=== PATIENT | female | born 1940 | race Caucasian/White ===

== ENCOUNTER 2018-06-15 15:05 | Outpatient (CLI) | payer MEDICARE, MEDICAID, SELFPAY ==
--- NOTE | 2018-06-15 15:19 | DI.RAD_ITS ---
SYMPTOMS/DIAGNOSIS: ARTHRITIS OF LEFT KNEE, M17.12 LEFT KNEE: Comparison is made with March,. Again noted is severe narrowing of the medial femorotibial joint space and varus angulation. Loose bodies are again seen posteriorly. There is mild spurring at the patellofemoral joint, also stable. IMPRESSION: Stable severe degenerative changes of the medial femorotibial joint.
== END 2018-06-15 15:25 ==
PROVIDERS: PCP Family Medicine; Visit Provider Family Medicine
DX: M17.12 Unilateral primary osteoarthritis, left knee (principal)
CPT/HCPCS: 73562

== ENCOUNTER → 2018-06-17 09:40 | Outpatient (BNVA) | payer MEDICARE, MEDICAID, SELFPAY | PROVIDERS: PCP Family Medicine; Visit Provider Internal Medicine Cardiovascular Disease | DX: I25.810 Atherosclerosis of coronary artery bypass graft(s) without angina pectoris (principal); I51.9 Heart disease, unspecified; I13.10 Hypertensive heart and chronic kidney disease without heart failure, with stage 1 through stage 4 chronic kidney disease, or unspecified chronic kidney disease; I34.0 Nonrheumatic mitral (valve) insufficiency; E11.22 Type 2 diabetes mellitus with diabetic chronic kidney disease; Z79.4 Long term (current) use of insulin; N18.9 Chronic kidney disease, unspecified | CPT/HCPCS: 99214 ==

== ENCOUNTER → 2018-07-07 13:46 | Outpatient (BNVA) | payer MEDICARE, MEDICAID, SELFPAY | PROVIDERS: PCP Family Medicine; Referring Provider Family Medicine; Visit Provider Student in an Organized Health Care Education/Training Program | DX: M17.12 Unilateral primary osteoarthritis, left knee (principal); E11.9 Type 2 diabetes mellitus without complications; Z79.4 Long term (current) use of insulin; I10 Essential (primary) hypertension | CPT/HCPCS: 99201; 99214 ==

== ENCOUNTER 2018-08-18 11:10 | Outpatient (CLI) | payer MEDICARE, MEDICAID, SELFPAY ==
[2018-08-18 12:59] LABS: Potassium 3.9 mmol/L (3.5-5.1)
[2018-08-18 13:13] LABS: Hemoglobin A1C 8.1 % (4.5-6.2)
== END 2018-08-18 11:30 ==
PROVIDERS: PCP Family Medicine; Visit Provider Family Medicine
DX: E11.65 Type 2 diabetes mellitus with hyperglycemia (principal); I10 Essential (primary) hypertension
CPT/HCPCS: 36415; 83036; 84132

== ENCOUNTER 2018-09-08 09:46 | Outpatient (CLI) | payer MEDICARE, MEDICAID, SELFPAY ==
[2018-09-08 11:57] LABS: HGB 12.2 g/dL (12.0-15.5); Mean Corp. HGB Concentration 32.1 g/dL (32.0-36.0); Mean Corpuscular Hemoglobin 28.2 pg (27.0-33.0); Mean Corpuscular Volume 87.8 fL (80-95); Mean Platelet Volume 11.5 fL (8.0-11.0); Platelet Count 176 x1000/uL (130-400); RBC 4.33 m/cumm (4.00-5.20); RBC Distribution Width 14.7 % (11.7-14.6); White Blood Cell Count 5.72 k/cumm (4.4-10.8)
[2018-09-08 12:35] LABS: Anion Gap 8.5 mmol/L (3-11); BUN 20 mg/dL (7-18); CO2 30.5 mmol/L (21.0-32.0); Chloride 103 mmol/L (98-107); Glucose 170 mg/dL (70-100); Potassium 4.3 mmol/L (3.5-5.1); Sodium 142 mmol/L (136-145)
== END 2018-09-08 10:06 ==
PROVIDERS: PCP Family Medicine; Visit Provider Student in an Organized Health Care Education/Training Program
DX: M25.562 Pain in left knee (principal); M17.12 Unilateral primary osteoarthritis, left knee; I10 Essential (primary) hypertension; E11.9 Type 2 diabetes mellitus without complications; K21.9 Gastro-esophageal reflux disease without esophagitis; Z01.818 Encounter for other preprocedural examination
CPT/HCPCS: 36415; 80048; 85027; 86850; 86900; 86901

== ENCOUNTER → 2018-10-14 08:02 | Outpatient (BNVA) | payer MEDICARE, MEDICAID, SELFPAY | PROVIDERS: PCP Family Medicine; Referring Provider Family Medicine; Visit Provider Student in an Organized Health Care Education/Training Program | DX: R69 Illness, unspecified (principal) ==

== ENCOUNTER 2018-10-14 08:09 | Inpatient (IN) | payer MEDICARE, MEDICAID, SELFPAY ==
[2018-10-14] VITALS (11 sets, daily range): BP systolic 123–157; BP diastolic 57–81; PULSE 61–72; RESP 16–21; TEMP 36.3–36.7; O2SAT 92–95
[2018-10-14] MEDS: Bupivacaine 0.5% Pres-Free 30 ML VIAL (08:21)
[2018-10-14] MEDS: Acetaminophen 500 MG TAB 1000 MG PO ×3 (08:51→23:00)
[2018-10-14] MEDS: Celecoxib 200 MG CAP 400 MG PO (08:52)
[2018-10-14] MEDS: Gabapentin 300 MG CAP PO (08:52)
[2018-10-14 09:30] LABS: Anion Gap 6.2 mmol/L (3-11); BUN 15 mg/dL (7-18); CO2 32.8 mmol/L (21.0-32.0); CREATININE 1.03 mg/dL (0.55-1.02); Calcium 9.2 mg/dL (8.5-10.1); Chloride 104 mmol/L (98-107); Glucose 114 mg/dL (70-100); Potassium 3.9 mmol/L (3.5-5.1); Sodium 143 mmol/L (136-145)
[2018-10-14] MEDS: Lactated Ringers 1,000 ML 80 ML IV ×2 (09:49→13:50)
[2018-10-14] MEDS: Bupivacaine LIPOSOME/PF 133 MG/10 ML VIAL IJ ×2 (10:10→11:32)
[2018-10-14] MEDS: Bupivacaine 0.25% Pres-Free 30 ML VIAL (11:32)
[2018-10-14] MEDS: Ketorolac 30 MG/ML VIAL (11:32)
[2018-10-14] MEDS: Normal Saline 20 ML VIAL (11:33)
--- NOTE | 2018-10-14 15:38 | NUR.NOTE ---
Nursing Note: Pt arrived from PACU via stretcher. Physical Therapy on floor at arrival and helped Pt tranfer from stretcher to bed via walker and minimal assist. Pt has good strength. c/o some dizziness. VSS. Kept on O2 d/t drowsiness and 90% on RA.
--- NOTE | 2018-10-14 16:00 | PT.INIE ---
Date of service: 10/14/18 Time of Service: 13:40 PT Notes Inpatient Physical Therapy Evaluation Date: 10/14/18 Referring Doctor: Dr. Auguste PT Orders: PT CONSULT: Status post left TKA Precautions: Weightbearing as tolerated left lower extremity, fall, standard Patient Profile/Admitting Diagnosis: Patient admitted after left total knee replacement performed earlier today. PMHX: Diabetes, hypertension, dyslipidemia, status post CABG Social History/Home Situation: Patient lives in a mobile home with ramp to enter. She reports that she lives with her son, who assist with her care. She has been utilizing a wheeled walker due to increasing knee pain prior to surgery Equipment Owned/DME: Wheeled walker, ramp Subjective: Patient states that she is feeling good. She denies pain, and states that she feels comfortable getting up and trying some walking. Objective: General Observation: Patient resting on gurney with Cryo/Cuff to left knee, Jag wrap to left lower extremity, supplemental oxygen via nasal cannula, IV in left upper extremity, Collins catheter. Mental Status: A and O x3 Pain: 0/10 ROM: Right Upper Extremity: WFL Left Upper Extremity: WFL Right Lower Extremity: WFL Left Lower Extremity: Patient is able to demonstrate 0-85 degrees of knee flexion functionally. Strength: Right Upper Extremity: WFL Left Upper Extremity: WFL Right Lower Extremity: WFL Left Lower Extremity: Patient is able to perform straight leg raise, and able to demonstrate quad strength greater than or equal to 3/5. Ankle dorsiflexion is at least 3/5 Sensation: Intact distally Bed Mobility/Transfers: Supine?sit: Supervision Sit?supine: Supervision with cues for technique Sit?stand: Contact-guard x2 Stand to sit: Contact-guard x2, with cues for technique Gait: Patient ambulate 6 feet with FW W, CG x2, mod cues for technique and equipment management. Balance: Static Sitting: Good Dynamic Sitting: Good Static Standing: Fair Dynamic Standing: Fair Special Tests: Mobility Limitations Standardized Measure [facility] AM-PAC 6 clicks Basic Mobility Inpatient Short Form: Raw Score: 18 CMS Score: 47% deficit Informed Consent/Education: Patient instructed in purpose of PT consult and plan of care. She received gait and transfer training, and was instructed in early bed exercises, including ankle pumps, quad sets and glutes sets. She was encouraged to perform these independently throughout the night. Assessment: Patient is a78 year old male referred to physical therapy services with the diagnosis of left knee OA, status post TKA performed earlier today. Patient presents with clinical signs and symptoms consistent with postoperative status, as demonstrated by the following impairment level findings: 1. Decreased left knee range of motion 2. Decreased left lower extremity strength 3. Decreased balance 4. Decreased activity tolerance Impairments are contributing to the following functional limitations: 1. Unable to independently transfer 2. Unable to independently ambulate 3. Decreased tolerance to household distance ambulation Patient is assessed as Moderate 22870 complexity based on the following: History: 78-year-old female admitted after total knee replacement performed earlier today. Her medical history is significant for diabetes and cardiac issues, which will negatively impact prognosis. She does have good social supports at home and tolerating initiation of PT intervention very well today. Examination: Functional limitations as noted above Presentation: Evolving due to acute postoperative status Decision Making: Moderate complexity Goals: Goals X1 week 1. Supine-Sit: Supervision 2. Sit-Supine : Supervision 3. Sit-Stand: Supervision 4. Stand-Sit : Supervision 5. Bed-Chair : Supervision with FW W 6. Chair-Bed : Supervision with FW W 7. Gait : Supervision with FW W is 50 feet Plan of Care/Treatment Plan: 1-2x/day, 7 days/week x 1 week. Plan of care has been reviewed with the CHICKEN CATCHER providing the service under Physical Therapy direction. Initiate Physical Therapy intervention for strengthening, bed mobility, transfers, gait, stairs, balance training, use of assistive device. DISCHARGE RECOMMENDATIONS: Home with family support TREATMENT CODE/TIME: 140?2:00 ([id number]) Gretel Skaggs, PT, DPT [facility]
--- NOTE | 2018-10-14 16:08 | IN_ITS ---
Date of service: 10/14/18 Time of Service: 13:40 PT Notes Inpatient Physical Therapy Evaluation Date: 10/14/18 Referring Doctor: Dr. Auguste PT Orders: PT CONSULT: Status post left TKA Precautions: Weightbearing as tolerated left lower extremity, fall, standard Patient Profile/Admitting Diagnosis: Patient admitted after left total knee replacement performed earlier today. PMHX: Diabetes, hypertension, dyslipidemia, status post CABG Social History/Home Situation: Patient lives in a mobile home with ramp to enter. She reports that she lives with her son, who assist with her care. She has been utilizing a wheeled walker due to increasing knee pain prior to surgery Equipment Owned/DME: Wheeled walker, ramp Subjective: Patient states that she is feeling good. She denies pain, and states that she feels comfortable getting up and trying some walking. Objective: General Observation: Patient resting on gurney with Cryo/Cuff to left knee, Jag wrap to left lower extremity, supplemental oxygen via nasal cannula, IV in left upper extremity, Collins catheter. Mental Status: A and O x3 Pain: 0/10 ROM: Right Upper Extremity: WFL Left Upper Extremity: WFL Right Lower Extremity: WFL Left Lower Extremity: Patient is able to demonstrate 0-85 degrees of knee flexion functionally. Strength: Right Upper Extremity: WFL Left Upper Extremity: WFL Right Lower Extremity: WFL Left Lower Extremity: Patient is able to perform straight leg raise, and able to demonstrate quad strength greater than or equal to 3/5. Ankle dorsiflexion is at least 3/5 Sensation: Intact distally Bed Mobility/Transfers: Supine?sit: Supervision Sit?supine: Supervision with cues for technique Sit?stand: Contact-guard x2 Stand to sit: Contact-guard x2, with cues for technique Gait: Patient ambulate 6 feet with FW W, CG x2, mod cues for technique and equipment management. Balance: Static Sitting: Good Dynamic Sitting: Good Static Standing: Fair Dynamic Standing: Fair Special Tests: Mobility Limitations Standardized Measure [facility] AM-PAC 6 clicks Basic Mobility Inpatient Short Form: Raw Score: 18 CMS Score: 47% deficit Informed Consent/Education: Patient instructed in purpose of PT consult and plan of care. She received gait and transfer training, and was instructed in early bed exercises, including ankle pumps, quad sets and glutes sets. She was encouraged to perform these independently throughout the night. Assessment: Patient is a78 year old male referred to physical therapy services with the diagnosis of left knee OA, status post TKA performed earlier today. Patient presents with clinical signs and symptoms consistent with postoperative status, as demonstrated by the following impairment level findings: 1. Decreased left knee range of motion 2. Decreased left lower extremity strength 3. Decreased balance 4. Decreased activity tolerance Impairments are contributing to the following functional limitations: 1. Unable to independently transfer 2. Unable to independently ambulate 3. Decreased tolerance to household distance ambulation Patient is assessed as Moderate [id number] complexity based on the following: History: 78-year-old female admitted after total knee replacement performed earlier today. Her medical history is significant for diabetes and cardiac iss ues, which will negatively impact prognosis. She does have good social supports at home and tolerating initiation of PT intervention very well today. Examination: Functional limitations as noted above Presentation: Evolving due to acute postoperative status Decision Making: Moderate complexity Goals: Goals X1 week 1. Supine-Sit: Supervision 2. Sit-Supine : Supervision 3. Sit-Stand: Supervision 4. Stand-Sit : Supervision 5. Bed-Chair : Supervision with FW W 6. Chair-Bed : Supervision with FW W 7. Gait : Supervision with FW W is 50 feet Plan of Care/Treatment Plan: 1-2x/day, 7 days/week x 1 week. Plan of care has been reviewed with the EMERGENCY NURSE providing the service under Physical Therapy direction. Initiate Physical Therapy intervention for strengthening, bed mobility, transfers, gait, stairs, balance training, use of assistive device. DISCHARGE RECOMMENDATIONS: Home with family support TREATMENT CODE/TIME: 140?2:00 ([id number]) Gretel Skaggs, PT, DPT [facility]
[2018-10-14] MEDS: Budesonide/Formoterol 80/4.5 6.9 GM 60 PUFF INH IH (20:35)
[2018-10-14] MEDS: Aspirin E.C. 81 MG TABEC PO (20:35)
[2018-10-14] MEDS: Celecoxib 100 MG CAP PO (20:36)
--- NOTE | 2018-10-14 23:00 | W.PM.OP ---
Date of service: 10/14/18 Time of Service: 14:00 Operative Note DATE OF PROCEDURE: 10/14/18 PRE-OP DIAGNOSIS: Left knee osteoarthritis POST-OP DIAGNOSIS: same PROCEDURE: Left total Knee Replacement SURGEON: aWle Auguste FAMILY [employer] MARRIAGE COUNSELLOR: Claudia Frazier ANESTHESIA: regional and spinal ESTIMATED BLOOD LOSS: 150 PATHOLOGY: none sent TOURNIQUET TIME: 25 COMPLICATIONS: None Patient was transported to: PACU Patient's condition: stable Implants: 1. Depuy Attune Posterior Stabilized Femoral Component, Size 4 2. Depuy Attune Fixed Platform Tibial Component, Size 4 x 8mm 3. Depuy Attune 4 x 8 mm fixed, Stabilized Poly 4. Depuy Attune Patellar Component, Size 32 mm Indications: I have seen Marija in clinic for symptoms of LEFT knee arthritis, confirmed with radiographic findings. Marija has exhausted nonoperative methods and was having significant limitations in daily function and desired better function and less pain. I discussed the technical details of a knee replacement. I explained the risks of the procedure to include, but not limited to, bleeding, infection, pain, stiffness, fracture, damage to nerves and vessels, damage to muscles and tendons, loosening, need for repeat procedure, blood clot and cardiopulmonary demise. Despite these risks, she elected to proceed. Findings: There was significant signs of arthritis throughout the knee. Procedure Description: Catarino was greeted in the preoperative holding area where the correct side was identified and marked. The consent was reviewed with the patient and signed. The history and physical was updated. All questions were answered. Preoperative medications were administered: Acetaminophen 1000mg, Celebrex 400mg, and gabapentin 300mg. An adductor canal block was then administered by the anesthesia team in the PACU. Marija was taken back to the operating room. A spinal anesthestic was then administered. The patient was placed into the supine position on the operating room table. A nonsterile tourniquet was placed high onto the leg but only used for cementing. Posts were placed for positioning during the procedure. All bony prominences were well padded. Prophylactic antibiotics in the form of cefazolin were administered. 1g of Tranxemic Acid was given intravenously within 30 minutes of incision. The right leg was then prepped with Chloraprep and draped in a standard fashion with impervious stockinette and extremity drape with Iodine impregnated skin protection. A timeout to confirm correct identity, side and site, procedure, allergies, anesthesia, and medical concerns was performed. With the knee in some flexion, a midline incision was made overlying the knee. Full thickness skin flaps were raised once the extensor mechanism was encountered. These were raised medially and laterally. Any bleeding was controlled with electrocautery. Once the extensor mechanism was fully exposed, a medial parapatellar arthrotomy was performed in a flexed position. All bleeding from the arthrotomy and the geniculate arteries was coagulated. A medial subperiosteal peel was performed with electrocautery to the midcoronal plane. Due to the significant varus deformity the entire medial tibial plateau was exposed. The fat pad was removed while keeping the patellar tendon protected. The anterior distal femur synovium was removed for later visualization. The ACL and PCL were resected and the anterior horn of the lateral meniscus was transected. The knee was then flexed with the patella everted. Large osteophytes from the tibia were removed. Large osteophytes from the femur were removed. Using a step drill, and based on preoperative templating, the femoral canal was entered. This was done with a step drill without any difficulty. The intramedullary distal femoral cut guide was inserted, set to a 5 degree valgus cut and 9mm cut thickness. The distal femoral cut guide was then held in position and pinned. With the soft tissues protected, the distal cut was performed. This was passed over a few times to ensure a planar cut. I then turned attention to the tibia. The extramedullary guide was placed onto the leg. The distal aspect was slid medial to adjust for position of center of ankle and stay in line with shaft of the tibia. Approximately 3-5 degrees of posterior slope was kept in the proximal cutting guide. The center of the guide was aligned with the PCL. The stylus was used to assess cut thickness. The medial side, most involved side, was set for a 4mm cut. This was then held in position and pinned into place with 2 additional pins and a cross pin for stability. The medial and lateral collateral ligaments were protected and the cut was performed. With this completed, it was assessed and noted to be of appropriate dimensions. The guide was removed. A spacer block was inserted and the knee was brought into extension. The 7 mm spacer block provided full extension, without hyperextension and with stability of both the medial and lateral collateral ligaments was assessed. The pins from the femur and the tibia were then removed. The distal femur was then sized. The anterior stylus was placed onto the lateral ridge of the anterior femur. This indicated a size 4 femur. The external rotation of the guide was adjusted to 3 degrees to match the epicondylar axis, perpendicular to Dwayne?s line. The 4-in-1 cutting guide was the placed. The posterior medial femur cut was evaluated and appeared of good thickness. The spacer block was inserted underneath the cutting guide and stability was confirmed in 90 degrees of flexion. An jordan wing was used to confirm appropriate position of the anterior cut to avoid notching. This cutting guide was ensured to be flush on the cut surface and then pinned into place with headed pins. While protecting the soft tissues, quad tendon, and collateral ligaments, the anterior and posterior cuts were performed with a saw. The central two pins were removed and the posterior and anterior chamfers were cut next. The notch-cutting guide was placed. This was pinned to lateralize the femoral component as much as possible while keeping it flush on the cut surface. This was then pinned into position. A reciprocating saw was used to make the notch cut. A rasp smoothed the cut surfaces. A trial posterior stabilized femoral component was then inserted, impacted down to the cut surfaces, and the lug holes were drilled. A provisional trial tibial component was placed and the knee was brought through range of motion. There was noted to be excellent extension and flexion. There was no significant instability. The polyethylene was trialed until there was good flexion and extension with excellent stability to the medial and lateral collaterals. The patella was tracking without thumbs. The tibial cut surface was fully exposed. The medial and lateral menisci were removed. The tibia was then sized as a 4. The tibia had been previously marked during trialing to correspond to the center of the tibial component to help with rotation. The trial was aligned to this christian, approximately rotated to the medial 1/3rd of the tibial tubercle. The trial was pinned into place. The tibia was prepared with a reamer and a keel punch. The knee was then brought into extension and the patella was measured as 25 mm. Using the patellar clamp and cut guide, this was resected to a flat surface with at least 13mm of thickness remaining. The size 35 patella fit the best. This was oriented and then clamped into position. The lugs were drilled. The trial components were removed. The final components, except for the polyethylene were opened on the back table. The periosteal and capsular tissues, especially posteriorly, around the knee were then systematically injected with a periarticular cocktail consisting of 50cc 0.25% Marcaine, 30mg Ketorolac, 20cc of Exparal and 50cc of injectable saline. The tourniquet was then inflated to 275mmHg. The knee was thoroughly irrigated with a pulse lavage and dried. On the back table, with the implants opened, the cement was mixed. 2 batches of antibiotic laden cement were prepared with vacuum assistance. After the cement was ready a small amount was placed on to the back side of the tibial component at the keel. A small amount was placed onto the posterior flange of the femur. Cement was manual pressurized and impregnated into the cut surface of the tibia. The tibial component was then inserted into the cut surface and impacted into position. Excess cement was removed and the component was reimpacted. Again, excess cement was removed and our attention was then turned to the femur. The femoral cut surface was once again dried and cement was manually impacted into the cut surface. The femoral component was lined with the lug holes and impacted. Excess cement was removed. It was ensured to be down against the cut surface. The trial polyethylene was then inserted and the leg was brought out into full extension for the duration of the cement curing process, approximately 15min. Cement was lastly manually impacted into the cut surface of the patella and the patellar button was clamped into position and held. During this process attention was turned to the gutters of the knee and for all interfaces for any excess cement. After the cement had finally cured, approximately 15min, the clamp was removed from the patella and the knee was taken through range of motion. A size 6mm polyethylene component provided the best range of motion and stability with less than 2mm gapping with medial and lateral stress and full extension without significant hyperextension. The patella was tracking with a no-thumbs technique. The trial poly was removed and once again the knee was checked for any loose, excess, or errant cement. The poly component was then inserted and impacted into position after cleaning and drying the tibial tray. The capsule was then reapproximated with a No. 1 Vicryl at multiple locations. The capsule was finally closed with a No. 2 Stratafix, barbed suture. The tourniquet was then released and the arthrotomy appeared watertight without significant bleeding. The second dosing of 1g TXA was started. Deep tissues were then reapproximated with 0 Vicryl and 2-0 Vicryl. The skin was closed with a running 3-0 Monocryl in a subcuticular fashion. This was reinforced with skin glue. A Mepilex silver dressing was applied along with a [id number] KENNETH wrap. A CryoCuff was applied. VANDANA was transferred to the hospital bed without difficulty an suffering no apparent complication. NAME has a good prognosis. Physical therapy will start today and without restrictions, weight-bearing as tolerated. Aspirin 81mg BID will be used for DVT prophylaxis.
[2018-10-14] MEDS: Insulin Glargine 300 UNITS/3 ML PEN 30 UNITS SC (23:01)
[2018-10-14] MEDS: ROSUVASTATIN 20 MG TAB 40 MG PO (23:01)
[2018-10-15] VITALS (7 sets, daily range): BP systolic 102–127; BP diastolic 61–92; PULSE 63–71; RESP 18–20; TEMP 35.8–37.4; O2SAT 91–98
[2018-10-15] MEDS: Lactated Ringers 1,000 ML 80 ML IV (03:15)
[2018-10-15] MEDS: HYDROmorphone 2 MG TAB PO ×2 (03:16→13:59)
[2018-10-15] MEDS: Normal Saline Flush 10 ML SYR IV ×2 (07:55→21:07)
[2018-10-15] MEDS: Aspirin E.C. 81 MG TABEC PO ×2 (07:58→21:11)
[2018-10-15] MEDS: Esomeprazole 40 MG CAPCR PO (07:58)
[2018-10-15] MEDS: NIFEdipine-CR 30 MG TABCR 90 MG PO (07:59)
[2018-10-15] MEDS: Montelukast 10 MG TAB PO (07:59)
[2018-10-15] MEDS: Sertraline 50 MG TAB 150 MG PO (07:59)
[2018-10-15] MEDS: Loratidine 10 MG TAB PO (08:00)
[2018-10-15] MEDS: Potassium Chloride 20 MEQ TABCR PO ×2 (08:00→21:10)
[2018-10-15] MEDS: Beta-Carotene(A) w/C,E, & Minerals TAB 1 TAB PO (08:00)
[2018-10-15] MEDS: Acetaminophen 500 MG TAB 1000 MG PO ×3 (08:00→21:11)
[2018-10-15] MEDS: Multivitamin w/Minerals TAB 1 TAB PO (08:00)
[2018-10-15] MEDS: Celecoxib 100 MG CAP PO ×2 (08:00→21:10)
[2018-10-15] MEDS: Furosemide 40 MG TAB PO (08:00)
[2018-10-15] MEDS: Losartan 50 MG TAB 100 MG PO (08:00)
[2018-10-15] MEDS: Metoprolol CR 50 MG TABCR PO (09:03)
--- NOTE | 2018-10-15 11:32 | PDOC.CMIN ---
Care Management Initial Assess REASON FOR HOSPITALIZATION:: L Knee DJD PAST MEDICAL HISTORY/PAST SURGICAL HISTORY:: CAD s/p three vessel bypass graft in 2011, history of depression, diabetes mellitus type 2 requiring insulin, hypertension, Basal carcinoma of the face, GERD, Asthma, Colonoscopy, Heart surgery, Ligation of fallopian tube, rotator cuff repair, Right carpal tunnel surgery release PREVIOUS FUNCTIONAL STATUS/SOCIAL/FAMILY SUPPORTS:: Marija resides in [place], her son and grandchild reside with her. She reports having seven children, with five now living-with an age range of 39-57. She reports a love of cooking her whole life which she still enjoys. 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 She also reports working at [employer] prior to retiring. She drives and manages her own ADLs at baseline and reports a robust, supportive family. One of her daughters and two of her sisters are in the room when meets with her. CURRENT FUNCTIONAL STATUS:: Marija Padgett is entertaining in interaction; using good humor to engage fully. She is forthcoming with information and pleasant in interaction. ADVANCE DIRECTIVES:: On file at [facility]: Kalin as Agent, Kayla as Alternate Has patient been provided with information about the portal?: Yes Did the patient sign up for the portal?: No CODE STATUS:: Full Code INSURANCE COVERAGE / FINANCIAL ISSUES:: Medicaid. Medicare CURRENT HOME/COMMUNITY SERVICES/EQUIPMENT:: FWW. PRIMARY CARE PHYSICIAN:: Paul Christiansen MD-[facility] POTENTIAL DISCHARGE NEEDS:: CM faxed referral to [facility] for Options Counselor with focus on Case Management, DME (interested in [facility]) and [facility] supports. Lorin will also have follow up appointment scheduled with Dr. Auguste. CM filled prescription for Shower Chair through [facility]. Notify Yudi Martin of admission; discharge plan. PATIENT/FAMILY EDUCATION NEEDS:: Review discharge instructions, discuss community based supports, DME options and coordination of services. ANTICIPATED BARRIERS TO DISCHARGE:: None identified. TRANSPORTATION:: Via private vehicle with family. PLAN:: Undetermined if Lorin will have new orders for [facility] supports through [facility], CM filled prescription for Shower Chair through [facility] at Patient and MD request. CM faxed referral to [facility] for CM, [facility] and additional DME request of [facility]. Lorin will return home when ready per MD, she will follow up with Dr. Auguste and her plan of care as prescribed including activity limitations and medication recommendations. She will transport via private vehicle with family.
--- NOTE | 2018-10-15 12:41 | PT.INTREAT ---
Date of service: 10/15/18 Time of Service: 09:15 PT Notes Inpatient Physical Therapy Treatment Note [facility] Date: 10/15/18 PRECAUTIONS: Fall, standard SUBJECTIVE: Temo states that she is feeling very good this morning. She is anxious to get out walking. OBJECTIVE: PAIN: 0/10 BED MOBILITY/TRANSFERS Supine-sit: Supervision Sit-supine: Supervision Sit-stand: Supervision Stand-sit: Supervision GAIT Assistive Device: FW W Weight bearing: WBAT Assist: 100 feet with CG; 30 feet with supervision Deviation: Patient ambulates on room air, desaturating to 86%. She was returned to supplemental oxygen (2 LPM, nasal cannula) where she rapidly desaturates back to 94%. THEREX: Patient was instructed in a therapeutic exercise program, as noted on flowsheet. She is instructed in the following activities for home program (is provided with handouts in her postop packet) 1. Ankle pumps 2. Quad sets 3. Glutes sets 4. L AQ 5. Heel slide 6. Seated knee flexion ASSESSMENT: Patient tolerating progressive ambulation well, although with oxygen desaturation on room air. Nursing was alerted, and patient was returned to supplemental oxygen post treatment. PLAN: Continue progressing towards established goals TREATMENT CODE/TIME: 915?950 ([id number], [id number])
--- NOTE | 2018-10-15 12:45 | PTTR_ITS ---
Date of service: 10/15/18 Time of Service: 09:15 PT Notes Inpatient Physical Therapy Treatment Note [facility] Date: 10/15/18 PRECAUTIONS: Fall, standard SUBJECTIVE: Temo states that she is feeling very good this morning. She is an xious to get out walking. OBJECTIVE: PAIN: 0/10 BED MOBILITY/TRANSFERS Supine-sit: Supervision Sit-supine: Supervision Sit-stand: Supervision Stand-sit: Supervision GAIT Assistive Device: FW W Weight bearing: WBAT Assist: 100 feet with CG; 30 feet with supervision Deviation: Patient ambulates on room air, desaturating to 86%. She was returned to supplemental oxygen (2 LPM, nasal cannula) where she rapidly desaturates back to 94%. THEREX: Patient was instructed in a therapeutic exercise program, as noted on flowsheet. She is instructed in the following activities for home program (is provided with handouts in her postop packet) 1. Ankle pumps 2. Quad sets 3. Glutes sets 4. L AQ 5. Heel slide 6. Seated knee flexion ASSESSMENT: Patient tolerating progressive ambulation well, although with oxygen desaturation on room air. Nursing was alerted, and patient was returned to supplemental oxygen post treatment. PLAN: Continue progressing towards established goals TREATMENT CODE/TIME: 915?950 ([id number], [id number])
--- NOTE | 2018-10-15 13:53 | CHAPLAIN ---
Marija was sitting up in her chair when I visited this morning. She had several family members with her. She told me about her knee surgery went well and she has been up and walking. Marija is Hinduism and attends [employer] in [place]. I let her know that Fr. Salamanca or Fr. Low will likely be in this afternoon to visit.
--- NOTE | 2018-10-15 14:51 | INITIAL_ITS ---
Care Management Initial Assess REASON FOR HOSPITALIZATION:: L Knee DJD PAST MEDICAL HISTORY/PAST SURGICAL HISTORY:: CAD s/p three vessel bypass graft in 2011, history of depression, diabetes mellitus type 2 requiring insulin, hypertension, Basal carcinoma of the face, GERD, Asthma, Colonoscopy, Heart surgery, Ligation of fallopian tube, rotator cuff repair, Right carpal tunnel surgery release PREVIOUS FUNCTIONAL STATUS/SOCIAL/FAMILY SUPPORTS:: Marija resides in [place], her son and grandchild reside with her. She reports having seven children, with five now living-with an age range of 39-57. She reports a love of cooking her whole life which she still enjoys. 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 She also reports working at [employer] prior to retiring. She drives and manages her own ADLs at baseline and reports a robust, supportive family. One of her daughters and two of her sisters are in the room when meets with her. CURRENT FUNCTIONAL STATUS:: Marija Padgett is entertaining in interaction; using good humor to engage fully. She is forthcoming with information and pleasant in interaction. ADVANCE DIRECTIVES:: On file at [facility]: Kalin as Agent, Kayla as Alternate Has patient been provided with information about the portal?: Yes Did the patient sign up for the portal?: No CODE STATUS:: Full Code INSURANCE COVERAGE / FINANCIAL ISSUES:: Medicaid. Medicare CURRENT HOME/COMMUNITY SERVICES/EQUIPMENT:: FWW. PRIMARY CARE PHYSICIAN:: Paul Christiansen MD-[facility] POTENTIAL DISCHARGE NEEDS:: CM faxed referral to [facility] for Options Counselor with focus on Case Management, DME (interested in [facility]) and [facility] supports. Rafy rosenberg will also have follow up appointment scheduled with Dr. Auguste. CM filled prescription for Shower Chair through [facility]. Notify Yudi Martin of admission; discharge plan. PATIENT/FAMILY EDUCATION NEEDS:: Review discharge instructions, discuss community based supports, DME options and coordination of services. ANTICIPATED BARRIERS TO DISCHARGE:: None identified. TRANSPORTATION:: Via private vehicle with family. PLAN:: Undetermined if Lorin will have new orders for VNA supports through [facility], CM filled prescription for Shower Chair through [facility] at Patient and MD request. CM faxed referral to [facility] for CM, [facility] and additional DME request of [facility]. Lorin will return home when ready per MD, she will follow up with Dr. Auguste and her plan of care as prescribed including activity limitations and medication recommendations. She will transport via private vehicle with family.
--- NOTE | 2018-10-15 15:49 | PTTR_ITS ---
Date of service: 10/15/18 Time of Service: 15:05 PT Notes Inpatient Physical Therapy Treatment Note [facility] Date: PRECAUTIONS:fall, standard SUBJECTIVE: Lorin states that her knee is very uncomfortable. She is been sitt ing up in the chair for a couple of hours, and would like to get back to bed. She has questions about obtaining a shower chair for home, which she has been discussing with care management. OBJECTIVE: Patient was seen for 2 brief afternoon sessions. She was initially assisted back to bed, and completed a portion of her therapeutic exercises, but declines ambulation. She later participates in a more substantial treatment session (30 minutes) with completion of gait and transfer training, as well as additional therapeutic exercises. PAIN: 03/02 BED MOBILITY/TRANSFERS Sit-supine: Mod assist to the left lower extremity Sit-stand: Min assist from chair, after prolonged sitting. During later afternoon session, patient completes with supervision only from edge of bed. Stand-sit: Supervision Toileting: Independent with upper extremity support to rails GAIT Assistive Device: FW W Weight bearing: WBAT left lower extremity Assist: CG Distance: 3 feet x1, 75 feet x1 VITALS: Patient ambulates on room air, again desaturating to 87%, and requiring pursed lip breathing at edge of bed to return to 90%. Post treatment, she was returned to supplemental oxygen via nasal cannula. THEREX: Patient completed both supine and seated therex activities, as noted on flowsheet. ASSESSMENT: Increased discomfort this afternoon. Patient was encouraged to participate in frequent short distance ambulation to reduce symptoms of pain and stiffness. She will requiring shower chair for home use, due to limited balance with dynamic standing (as noted in initial evaluation document). PLAN: Patient has planned discharge for tomorrow, and will require continued PT intervention in the meantime to maximize safety and independence prior to returning home. TREATMENT CODE/TIME: 135?145; 305?335 (total 40 minutes) ([id number], [id number])
[2018-10-15] MEDS: Budesonide/Formoterol 80/4.5 6.9 GM 60 PUFF INH IH (21:08)
[2018-10-15] MEDS: ROSUVASTATIN 20 MG TAB 40 MG PO (21:10)
[2018-10-15] MEDS: Insulin Glargine 300 UNITS/3 ML PEN 30 UNITS SC (22:13)
[2018-10-16] VITALS (8 sets, daily range): BP systolic 89–122; BP diastolic 48–62; PULSE 65–87; RESP 18–24; TEMP 36.2–37.2; O2SAT 81–94
[2018-10-16] MEDS: HYDROmorphone 2 MG TAB PO ×2 (04:29→13:09)
--- NOTE | 2018-10-16 06:58 | W.PM.PROGNOT ---
Date of Service Date of service: 10/15/18 Time of Service: 15:58 Assessment and Plan (1) Osteoarthritis, knee: Current visit: No Status: Deleted Marija is status post right knee replacement. She is doing well. She has no signs of complication. We will continue with aspirin for DVT prophylaxis. She will continue with physical therapy. Likely home tomorrow. Qualifiers: Laterality: left Osteoarthritis type: primary Qualified Code(s): M17.12 - Unilateral primary osteoarthritis, left knee Subjective Patient reports: no new complaints Interval history since last seen: Marija has been doing well. She reports good pain control. She has had some soreness when she tries to mobilize requiring some assistance. However, she is happy thus far with progress. She denies chest pain or shortness of breath. She has no fever or chills. Exam Narrative Exam Narrative: No acute distress. Alert oriented x3. Evaluation left leg shows a dressing which is clean dry and intact. Range of motion approximate 10-80 degrees. She is able straight leg raise although with some weakness. Sensation intact light touch of the deep and superficial peroneal nerve and tibial nerves. The foot is warm and well perfused. Objective Objective Clinical Data: Vital Signs Temperature 36.4 C L 10/16/18 03:36 Temperature Source Tympanic 10/16/18 03:36 Pulse 68 10/16/18 03:36 Pulse Rhythm Regular 10/15/18 21:05 Respiratory Rate 19 10/16/18 03:36 Respiratory Effort Non-Labored 10/15/18 21:05 Respiratory Depth Normal 10/15/18 21:05 Respiratory Pattern Normal 10/15/18 21:05 Blood Pressure 112/57 L 10/16/18 03:36 Pulse Oximetry 93 L 10/16/18 03:36 Respiratory End-tidal CO2 35 10/14/18 13:00 Oxygen Delivery Method Nasal Cannula 10/16/18 03:36 Oxygen Flow Rate 3 10/16/18 03:36 Pain Level 9 10/16/18 04:29 Comment 10/16/18 01:20 Intake & Output 10/15/18 10/15/18 10/16/18 11:59 23:59 11:59 Intake Total 1552.667 / 2542.667 990 / 2542.667 240 / 240 Output Total 1300 / 1300 Balance 252.667 / 1242.667 990 / 1242.667 240 / 240 Intake: IV 442.667 / 452.667 10 / 452.667 Oral 1110 / 2090 980 / 2090 240 / 240 Output: Urine 1300 / 1300 Other: Urine Color Yellow Yellow Urine Appearance Clear Comment large void in toilet, no hat for measurement. Voiding Methods Toilet Laboratory Results Sodium 143 mmol/L (136-145) 10/14/18 09:00 Potassium 3.9 mmol/L (3.5-5.1) 10/14/18 09:00 Chloride 104 mmol/L (98-107) 10/14/18 09:00 Carbon Dioxide 32.8 mmol/L (21.0-32.0) H 10/14/18 09:00 Anion Gap 6.2 mmol/L (3-11) 10/14/18 09:00 BUN 15 mg/dL (7-18) 10/14/18 09:00 Creatinine 1.03 mg/dL (0.55-1.02) H 10/14/18 09:00 Estimated GFR/1.73 m2 52.10 (mL/min/1.73m2) 10/14/18 09:00 Glucose 114 mg/dL (70-100) H 10/14/18 09:00 Hemoglobin A1c 8.0 % (4.5-6.2) H 10/14/18 09:00 Calcium 9.2 mg/dL (8.5-10.1) 10/14/18 09:00 Patient ABO/Rh O Positive 10/14/18 09:00 Antibody Screen Negative 10/14/18 09:00
[2018-10-16] MEDS: Esomeprazole 40 MG CAPCR PO (07:47)
[2018-10-16] MEDS: NIFEdipine-CR 30 MG TABCR 90 MG PO (07:47)
[2018-10-16] MEDS: Sertraline 50 MG TAB 150 MG PO (07:49)
[2018-10-16] MEDS: Potassium Chloride 20 MEQ TABCR PO ×2 (07:49→19:45)
[2018-10-16] MEDS: Celecoxib 100 MG CAP PO ×2 (07:49→19:45)
[2018-10-16] MEDS: Acetaminophen 500 MG TAB 1000 MG PO ×3 (07:49→19:44)
[2018-10-16] MEDS: Montelukast 10 MG TAB PO (07:49)
[2018-10-16] MEDS: Beta-Carotene(A) w/C,E, & Minerals TAB 1 TAB PO (07:50)
[2018-10-16] MEDS: Multivitamin w/Minerals TAB 1 TAB PO (07:50)
[2018-10-16] MEDS: Aspirin E.C. 81 MG TABEC PO ×2 (07:50→19:45)
[2018-10-16] MEDS: Loratidine 10 MG TAB PO (07:50)
[2018-10-16] MEDS: Normal Saline Flush 10 ML SYR IV (07:50)
[2018-10-16] MEDS: Losartan 50 MG TAB 100 MG PO (07:50)
[2018-10-16] MEDS: Furosemide 40 MG TAB PO (07:50)
[2018-10-16] MEDS: Metoprolol CR 50 MG TABCR PO (07:50)
--- NOTE | 2018-10-16 08:00 | PDOC.CMPRO ---
- If Service Date Differs Date of service: 10/16/18 Time of Service: 08:00 Care Management Progress Note S/O:CM met with Lorin in the room. She is sitting up in the chair fully dressed. Lorin was planning to be discharged home today however her Sao2 dropped to 83 when PT was prepping her to ambulate. RT into assess patient, was notified per report and pt discharge was canceled for today. She states she has a history of COPD she denies smoking in her history. She will have an ambulatory walk test with RT to assess if she will need oxygen at discharge. Lorin was encouraged to use her incentive sp. A:Lorin is a 78 year old female admitted for left total knee who experienced a drop in her oxygen saturation on day of discharge. P:Marija will be discharged home when medically ready with VNA supports through [facility], Shower Chair through [facility] at Patient and MD request. Referral to [facility] for CM, [facility] and additional DME request of [facility] faxed. Lorin will follow up with Dr. Auguste and her plan of care as prescribed including activity limitations and medication recommendations. She will transport via private vehicle with family.
--- NOTE | 2018-10-16 08:03 | CMPROGNOTE_ITS ---
- If Service Date Differs Date of service: 10/16/18 Time of Service: 08:00 Care Management Progress Note S/O:CM met with Lorin in the room. She is sitting up in the chair fully dressed. Lorin was planning to be discharged home today however her Sao2 dropped to 83 when PT was prepping her to ambulate. RT into assess patient, was notified per report and pt discharge was canceled for today. She states she has a history of COPD she denies smoking in her history. She will have an ambulatory walk test with RT to assess if she will need oxygen at discharge. Lorin was encouraged to use her incentive sp. A:Lorin is a 78 year old female admitted for left total knee who experienced a drop in her oxygen saturation on day of discharge. P:Marija will be discharged home when medically ready with VNA supports through [facility], Shower Chair through [facility] at Patient and MD request. Referral to [facility] for CM, [facility] and additional DME request of [facility] faxed. Lorin will follow up with Dr. Auguste and her plan of care as prescribed including activity limitations and medication recommendations. She will transport via private vehicle with family.
[2018-10-16] MEDS: Insulin Aspart 300 UNITS/3 ML PEN SC ×5 (08:10→19:50)
--- NOTE | 2018-10-16 08:54 | DSE_ITS ---
Date of service: 10/16/18 Time of Service: 08:54 DS: Diagnosis Discharge Diagnosis (1) Osteoarthritis, knee: Status: Deleted Discharge Plan Disposition Patient Disposition: HOME Condition: Good Discharge Details Reason For Visit: L KNEE DJD Admit Date/Time: 10/14/18 08:09 Admit Provider: Wale Auguste Attending Provider: Wale Auguste Primary Care Provider: Paul Christiansen Hospital Course Hospital Course: Patient was admitted to the medical/surgical floor following the procedure. It was tolerated well without any notable medical, surgical, or anesthetic complications. Mobilization began postoperatively. The bennett catheter was removed and voiding spontaneously. The uterus initially needed some oxygen support for appropriate saturations. Unfortunately, she was unable to make much progress this initially. Eventually, she required a medicine consult where chest x-ray showed some possible consolidations over the lower lobes concerning for either atelectasis or infection. She started on antibiotic and also steroids. After 4 days it started to improve. Her pain also improved where she was ambulating without any assistance. Physical therapy worked with the patient and was cleared for discharge home. Home Meds and New Rx's Prescriptions: New acetaminophen 500 mg tablet 1,000 mg PO Q8H PRN (Reason: pain) Qty: 90 RF: 3 meloxicam 7.5 mg tablet 7.5 mg PO BID Qty: 60 RF: 0 polyethylene glycol 3350 17 gram Powder In Packet 17 g PO BID PRN PRN (Reason: Constipation) Qty: 0 RF: 0 tramadol 50 mg tablet 50 mg PO Q6H PRN (Reason: pain) Qty: 12 RF: 0 levofloxacin 750 mg tablet 750 mg PO DAILY Qty: 2 RF: 0 prednisone 20 mg tablet See Rx Instructions .ROUTE .COMPLEX Qty: 9 RF: 0 Continued blood-glucose meter [OneTouch UltraMini] kit .ROUTE .MEDSUPPLY Qty: 1 RF: 0 ProAir HFA 90 mcg/actuation HFA aerosol inhaler 2 puff Inhalation Q4H PRN Qty: 1 RF: 11 furosemide 40 mg tablet 40 mg PO DAILY Qty: 90 RF: 3 lancets [OneTouch UltraSoft Lancets] misc 1 ea Sub-Q AC & HS Qty: 400 RF: 4 metoprolol succinate 50 mg tablet extended release 24 hr 50 mg PO DAILY Qty: 90 RF: 3 montelukast 10 mg tablet 10 mg PO DAILY Qty: 90 RF: 3 Novolog Flexpen U-100 Insulin 100 unit/mL insulin pen 4 unit Sub-Q 0800,1200,1700 Qty: 5 RF: 3 loratadine [Claritin] 10 mg tablet 10 mg PO DAILY Qty: 90 RF: 3 nitroglycerin [Nitrostat] 0.4 mg tablet, sublingual 0.4 mg Sublingual PRN Qty: 25 RF: 4 NovoFine 30 30 gauge x 1/3 needle 1 ea Miscellaneous AC & HS Qty: 300 RF: 4 rosuvastatin [Crestor] 40 mg tablet 40 mg PO qhs Qty: 90 RF: 4 sertraline [Zoloft] 100 mg tablet 150 mg PO DAILY Qty: 135 RF: 4 Compact Compressor Nebulizer 1 EACH kit 1 ea Miscellaneous Q6H PRN Qty: 1 RF: 0 Centrum Silver Women 1 EACH tablet 1 ea PO DAILY RF: 0 ana stockings 1 RF: 0 ipratropium-albuterol 3 ML solution for nebulization 3 ml Inhalation Q6H PRN Qty: 1 RF: 5 nifedipine [Procardia XL] 90 MG tablet extended release 24hr 90 mg PO DAILY Qty: 90 RF: 4 esomeprazole magnesium [Nexium] 40 MG capsule,delayed release(DR/EC) 40 mg PO QAM Qty: 90 RF: 4 Ocuvite with Lutein 1 EACH tablet 1 ea PO DAILY Qty: 90 RF: 3 potassium chloride 10 mEq tablet extended release 20 meq PO BID Qty: 360 RF: 4 losartan [Cozaar] 100 mg tablet 100 mg PO DAILY Qty: 90 RF: 4 Symbicort 80-4.5 mcg/actuation HFA aerosol inhaler 2 puff Inhalation BID PRNRF: 0 Basaglar KwikPen U-100 Insulin 100 unit/mL (3 mL) insulin pen 30 unit subcut HS RF: 0 Changed aspirin [Aspir-81] 81 MG tablet,delayed release (DR/EC) 81 mg PO BID Qty: 80 RF: 0 Discontinued benzonatate [Tessalon Perles] 100 mg capsule 100 mg PO TID PRN (Reason: cough) Qty: 30 RF: 0 Victoza 3-Vinay 0.6 mg/0.1 mL (18 mg/3 mL) pen injector 1.2 mg subcut DAILY Qty: 6 RF: 5 Discharge Instructions Instructions: Knee Replacement (DC) Additional Instructions: Dr. Auguste?s Total Knee Discharge Instructions Activity: The most important activity is to walk. You should try to take short walks a few times a day. It is important that when resting you work on keeping the knee straight. Avoid putting a pillow behind the knee as this will encourage flexion. Work on range of motion exercises as provided by Physical Therapy. - Start outpatient physical therapy within 2 weeks. - You should wear the ANA hose on both legs for 4 weeks. Dressing: Keep the surgical dressing in place for at least one week. After the first week it may be removed and replace with light gauze and tape or nothing. It may get wet after 3 days but avoid soaking the dressing. If it gets wet, just lightly pat dry. Medications: - You should take Tylenol and anti-inflammatory (Meloxicam) as your primary pain control medications - You have been prescribed a stronger pain medication (Tramadol) for breakthrough pain, take as needed as prescribed. - You will be taking Aspirin 81mg twice a day for DVT prevention unless instructed otherwise. - If you have constipation you should take Colace or Miralax (both scxc-fdt-gulceey). It takes most people 3-4 days to have a bowel movement. Follow-up: 2 weeks - Continue Renally dosed Levofloxacin at 750mg Q48 hours - next dose due tomorrow (10/21). Today is day #4/7 of antibiotics. - Continue but taper Prednisone - 40mg daily X3 days, 20mg daily X3 days then stop. - Continue home inhaler therapy as previous, with liberal use of rescue inhaler and nebulizer if needed. No strenuous activity. Stand Alone Forms: Nursing Discharge Form Referrals: Wale Auguste MD [ [facility] ST[facility]FF PHYSICIAN] - 11/03/18 2:30 pm Activity:: Activity as Tolerated Equipment/Supplies:: Shower Chair and Walker Diet:: Carb Counting Discharge Orders Discharge Orders: Discharge Order (Routine); Ordered 10/20/18 Ordered By: Wale Auguste DS: Data Vitals/I&O Vitals and I&O: Vital Signs Temperature 36.4 C L 10/16/18 03:36 Temperature Source Tympanic 10/16/18 03:36 Pulse 68 10/16/18 03:36 Pulse Rhythm Regular 10/15/18 21:05 Respiratory Rate 19 10/16/18 03:36 Respiratory Effort Non-Labored 10/15/18 21:05 Respiratory Depth Normal 10/15/18 21:05 Respiratory Pattern Normal 10/15/18 21:05 Blood Pressure 112/57 L 10/16/18 03:36 Pulse Oximetry 93 L 10/16/18 03:36 Respiratory End-tidal CO2 35 10/14/18 13:00 Oxygen Delivery Method Nasal Cannula 10/16/18 03:36 Oxygen Flow Rate 3 10/16/18 03:36 Pain Level 4 10/16/18 07:49 Comment 10/16/18 01:20 Intake & Output 10/15/18 10/15/18 10/16/18 11:59 23:59 11:59 Intake Total 1552.667 / 2542.667 990 / 2542.667 240 / 240 Output Total 1300 / 1300 300 / 300 Balance 252.667 / 1242.667 990 / 1242.667 -60 / -60 Intake: IV 442.667 / 452.667 10 / 452.667 Oral 1110 / 2090 980 / 2090 240 / 240 Output: Urine 1300 / 1300 300 / 300 Other: Urine Color Yellow Yellow Yellow Urine Appearance Clear Clear Comment large void in toilet, no hat for measurement. Voiding Methods Toilet Toilet PFSH Surgical History S/P total knee arthroplasty (Acute ~09/2018) Colonoscopy - MAC (~2009) Heart surgery (~2010) Ligation of fallopian tube Rotator Cuff Repair (~2009) Family History Mother Hyperlipidemia Neoplasm Father Essential hypertension Heart disease Hyperlipidemia Sister Diabetes Essential hypertension Depression Heart disease Hyperlipidemia Asthma Sister No problems noted. Brother Diabetes Essential hypertension Heart disease Neoplasm Brother Diabetes Heart disease Myocardial infarction Asthma Brother Heart disease Neoplasm Asthma Grandfather Essential hypertension Heart disease Hyperlipidemia Grandfather Heart disease Hyperlipidemia Grandmother Essential hypertension Heart disease Hyperlipidemia Grandmother Essential hypertension Heart disease Son Diabetes Essential hypertension Depression Hyperlipidemia Son Diabetes Essential hypertension Hyperlipidemia Asthma Daughter Essential hypertension Asthma Daughter Essential hypertension Hyperlipidemia Daughter No problems noted. Daughter Essential hypertension Daughter Blind Deaf MS (multiple sclerosis) MR (mental retardation) Sister Diabetes Essential hypertension Social History highest education level completed: 10th grade current occupation: Homemaker pets and animals: Yes pets and animals: cat(s) frequency: 1-2 times per week Smoking and Tabacco status: Never alcohol intake: never substance use type: does not use wen/anglican: Jainism special wen needs: No
--- NOTE | 2018-10-16 09:20 | SAO2N_ITS ---
SAO2 with Exercise Patient:BITA UREÑA Date/Time: 10/18/18 0742 [id number] Tech: HN
[2018-10-16] MEDS: Budesonide/Formoterol 80/4.5 6.9 GM 60 PUFF INH IH ×2 (09:39→19:43)
--- NOTE | 2018-10-16 12:02 | PT.INTREAT ---
Date of service: 10/16/18 Time of Service: 09:00 PT Notes Inpatient Physical Therapy Treatment Note [facility] Date: 10/16/18 PRECAUTIONS:Fall SUBJECTIVE: OBJECTIVE: Sit-stand: SBA Stand-sit: SBA GAIT Assistive Device: FWW Weight bearing: AT Assist: CGA with VC's Distance: 100ft x2 THEREX: Pt completed LE strengthening ther ex while in the seated and supine position. I reviewed pt's HEP with her to make sure she understood how to complete her program. Pt was able to achieve approx 100 degrees knee flexion on her own while seated and -10 degrees knee ext while supine. Pt did require 2-3L of oxygen while ambulating due to being in the mid to low 80's. This was also assessed with Respiratory. ASSESSMENT: Pt tolerated today's session fairly well. Pt did require vc's for her gait mechanics with ambulation. PLAN: Cont as per PT POC. TREATMENT CODE/TIME: 9-9:40
--- NOTE | 2018-10-16 12:31 | W.PM.PROGNOT ---
Date of Service Date of service: 10/16/18 Time of Service: 10:31 Assessment and Plan (1) Unilateral primary osteoarthritis, left knee: Current visit: Yes Status: Acute Marija is a 78-year-old status post left knee replacement. She is making some progress, albeit somewhat slowly. She is having some difficulty with pain control. We will continue with hydromorphone today and continue to watch it. We will try to limit this amount given her hypoxemia. We will continue to follow the oxygen requirement. I encouraged her to use incentive spirometry. Respiratory therapy will also see her. We will hold on discharge today and continue to work for discharge planning towards home. Subjective Interval history since last seen: Marija reports be doing fairly well. She does report having some increased pain of the left knee. However, she has been able to work with physical therapy. She has required some oxygen, this is mostly noted when she ambulated with physical therapy with an oxygen saturation down to 85%. She denies any chest pain or shortness of breath. She denies any fevers or chills. She is currently quite happy with how she is functioning at this time. She is voiding without difficulty after the catheter was removed. She has been able to tolerate drink and diet. Exam Narrative Exam Narrative: Sitting upright. No acute distress. Alert. Dressing is clean dry and intact of the left leg. The Jag wrap is removed. The knee has some edema and swelling but no signs of infection. Range of motion is partially 10-80 degrees. She is able to extend the knee although does so with some discomfort. The foot is warm well perfused. Sensation intact light touch of the deep insufficient peroneal nerve and tibial nerve. Objective Objective Clinical Data: Abnormal lab results 10/17/18 10/17/18 Range/Units 06:40 06:40 WBC 11.90 H (4.4-10.8) k/cumm RBC 3.46 L (4.00-5.20) m/cumm Hgb 9.7 L (12.0-15.5) g/dL Hct 30.5 L (36.0-46.0) % MCHC 31.8 L (32.0-36.0) g/dL MPV 12.3 H (8.0-11.0) fL BUN 39 H D (7-18) mg/dL Creatinine 1.69 H (0.55-1.02) mg/dL Glucose 150 H (70-100) mg/dL Calcium 8.3 L (8.5-10.1) mg/dL Vital Signs Temperature 36.9 C 10/17/18 03:30 Temperature Source Tympanic 10/17/18 03:30 Pulse 68 10/17/18 03:30 Pulse Rhythm Regular 10/17/18 00:30 Respiratory Rate 17 10/17/18 03:30 Respiratory Effort 10/17/18 00:30 Respiratory Depth Normal 10/17/18 00:30 Respiratory Pattern Normal 10/17/18 00:30 Blood Pressure 105/58 L 10/17/18 03:30 Pulse Oximetry 90 L 10/17/18 09:50 Respiratory End-tidal CO2 35 10/14/18 13:00 Oxygen Delivery Method Nasal Cannula 10/17/18 09:50 Oxygen Flow Rate 2 10/17/18 09:50 Pain Level 10 10/17/18 08:18 Comment 10/16/18 20:56 Intake & Output 10/16/18 10/17/18 10/17/18 23:59 11:59 23:59 Intake Total 1540 / 2140 480 / 480 Output Total 300 / 600 250 / 250 Balance 1240 / 1540 230 / 230 Intake: IV Oral 1530 / 2130 480 / 480 Output: Urine 300 / 600 250 / 250 Other: Urine Color Yellow Yellow Urine Appearance Clear Clear Urine Odor Normal Normal Comment VOIDING IN TOILET Stool Size Large Stool Characteristics Soft Formed Brown Voiding Methods Toilet Toilet Laboratory Results WBC 11.90 k/cumm (4.4-10.8) H 10/17/18 06:40 RBC 3.46 m/cumm (4.00-5.20) L 10/17/18 06:40 Hgb 9.7 g/dL (12.0-15.5) L 10/17/18 06:40 Hct 30.5 % (36.0-46.0) L 10/17/18 06:40 MCV 88.2 fL (80-95) 10/17/18 06:40 MCH 28.0 pg (27.0-33.0) 10/17/18 06:40 MCHC 31.8 g/dL (32.0-36.0) L 10/17/18 06:40 RDW 14.0 % (11.7-14.6) 10/17/18 06:40 Plt Count 175 x1000/uL (130-400) 10/17/18 06:40 MPV 12.3 fL (8.0-11.0) H 10/17/18 06:40 Sodium 136 mmol/L (136-145) 10/17/18 06:40 Potassium 4.9 mmol/L (3.5-5.1) D 10/17/18 06:40 Chloride 101 mmol/L (98-107) 10/17/18 06:40 Carbon Dioxide 27.4 mmol/L (21.0-32.0) 10/17/18 06:40 Anion Gap 7.6 mmol/L (3-11) 10/17/18 06:40 BUN 39 mg/dL (7-18) H D 10/17/18 06:40 Creatinine 1.69 mg/dL (0.55-1.02) H 10/17/18 06:40 Estimated GFR/1.73 m2 29.42 (mL/min/1.73m2) 10/17/18 06:40 Glucose 150 mg/dL (70-100) H 10/17/18 06:40 Hemoglobin A1c 8.0 % (4.5-6.2) H 10/14/18 09:00 Calcium 8.3 mg/dL (8.5-10.1) L 10/17/18 06:40 Patient ABO/Rh O Positive 10/14/18 09:00 Antibody Screen Negative 10/14/18 09:00
[2018-10-16] MEDS: ROSUVASTATIN 20 MG TAB 40 MG PO (21:06)
[2018-10-16] MEDS: Insulin Glargine 300 UNITS/3 ML PEN 30 UNITS SC (21:06)
--- NOTE | 2018-10-16 21:44 | NUR.NOTE ---
Nursing Note: At 2130 hrs.. Pt became confused, FS was 240. O2 was on 81% at 2L B/P was 89/48. reassessed, and Oxygen regulated to 4L/NC. and asked pt to do deep breathing exercises. Put on high vallejo's position and back to herself after 10 minutes. Alert and oriented x 3. conversant and the field underwriter spoke to her sister on the phone., to call her anytime, if pt will desat again. Latest B/P 95/56. administrative services officer is aware.
[2018-10-17] VITALS (8 sets, daily range): BP systolic 91–134; BP diastolic 56–88; PULSE 68–87; RESP 17–20; TEMP 36.2–37.1; O2SAT 90–98
[2018-10-17] MEDS: traMADol 50 MG TAB PO ×2 (02:12→08:18)
[2018-10-17 07:24] LABS: HCT 30.5 % (36.0-46.0); HGB 9.7 g/dL (12.0-15.5); Mean Corp. HGB Concentration 31.8 g/dL (32.0-36.0); Mean Corpuscular Volume 88.2 fL (80-95); Mean Platelet Volume 12.3 fL (8.0-11.0); Platelet Count 175 x1000/uL (130-400); RBC 3.46 m/cumm (4.00-5.20)
[2018-10-17] MEDS: Budesonide/Formoterol 80/4.5 6.9 GM 60 PUFF INH IH ×2 (07:29→19:35)
[2018-10-17 07:32] LABS: Anion Gap 7.6 mmol/L (3-11); BUN 39 mg/dL (7-18); CO2 27.4 mmol/L (21.0-32.0); CREATININE 1.69 mg/dL (0.55-1.02); Calcium 8.3 mg/dL (8.5-10.1); Chloride 101 mmol/L (98-107); Estimated GFR 29.42 (mL/min/1.73m2); Glucose 150 mg/dL (70-100); Potassium 4.9 mmol/L (3.5-5.1); Sodium 136 mmol/L (136-145)
[2018-10-17] MEDS: Aspirin E.C. 81 MG TABEC PO ×2 (08:16→19:34)
[2018-10-17] MEDS: Loratidine 10 MG TAB PO (08:16)
[2018-10-17] MEDS: Furosemide 40 MG TAB PO (08:16)
[2018-10-17] MEDS: Esomeprazole 40 MG CAPCR PO (08:16)
[2018-10-17] MEDS: Multivitamin w/Minerals TAB 1 TAB PO (08:16)
[2018-10-17] MEDS: Sertraline 50 MG TAB 150 MG PO (08:17)
[2018-10-17] MEDS: Celecoxib 100 MG CAP PO (08:17)
[2018-10-17] MEDS: Beta-Carotene(A) w/C,E, & Minerals TAB 1 TAB PO (08:17)
[2018-10-17] MEDS: NIFEdipine-CR 30 MG TABCR 90 MG PO (08:17)
[2018-10-17] MEDS: Acetaminophen 500 MG TAB 1000 MG PO ×2 (08:17→19:34)
[2018-10-17] MEDS: Montelukast 10 MG TAB PO (08:18)
[2018-10-17] MEDS: Metoprolol CR 50 MG TABCR PO (08:18)
[2018-10-17] MEDS: Losartan 50 MG TAB 100 MG PO (08:18)
[2018-10-17] MEDS: Potassium Chloride 20 MEQ TABCR PO ×2 (08:19→19:35)
[2018-10-17] MEDS: Insulin Aspart 300 UNITS/3 ML PEN SC ×6 (08:25→17:45)
--- NOTE | 2018-10-17 09:29 | CMPROGNOTE_ITS ---
- If Service Date Differs Date of service: 10/17/18 Time of Service: 09:28 Care Management Progress Note S/O: Lorin continues to have low saturations overnight. She remains oxygen dependent at this time. She will have a CAT scan today, and medical consult. Anticipate discharge home with oxygen if appropriate. She will continue to have PT while she remains inpatient. A:Lorin is a 78 year old female admitted for left total knee who experienced a drop in her oxygen saturation on day of discharge. P:Marija will be discharged home when medically ready with VNA supports through [facility], Shower Chair through [facility] at Patient and MD request. Referral to [facility] for CM, [facility] and additional DME request of [facility] faxed. Anticipate that he will have new home oxygen. Lorin will follow up with Dr. Auguste and her plan of care as prescribed including activity limitations and medication recommendations. She will transport via private vehicle with family.
[2018-10-17] MEDS: Albuterol/Ipratropium 3 ML UPD VIAL IH ×2 (11:44→16:12)
--- NOTE | 2018-10-17 12:18 | PT.INTREAT ---
Date of service: 10/17/18 Time of Service: 11:55 PT Notes Inpatient Physical Therapy Treatment Note [facility] Date: 10/17/18 PRECAUTIONS:Fall SUBJECTIVE: Pt reports that she has been having difficulty getting her pain under control and it dixon been causing vomiting this am. OBJECTIVE: Supine-sit: CGA Sit-supine: [] Sit-stand: CGA Stand-sit: CGA GAIT Assistive Device: FWW Weight bearing: WBAT L LE Assist: CGA Distance: 5 Steps to the W/C THEREX: Pt completed LE strengthening as per flow sheet with assist on the hip abd, SLR, and LAQ. Pt had approx 100 degrees knee flexion and with assist lacking approx 10 degrees ext. ASSESSMENT: Pt was not able to tolerate as much today due to her pain level. I also did not have much time today due to checking in with her x4 and then her having to go down for diagnostics. PLAN: Cont as per PT POC. TREATMENT CODE/TIME: 11:55-12:10 (15) DANA
--- NOTE | 2018-10-17 12:19 | W.PM.PROGNOT ---
Date of Service Date of service: 10/17/18 Time of Service: 12:19 Assessment and Plan (1) Hypoxemia requiring supplemental oxygen: Start date: 10/16/18 Current visit: Yes Status: Kami Dutton is a 78-year-old who unfortunately continues of hypoxemia. She is requiring supplemental oxygen as much as 4 L. We have tried to wean her down off of the oxygen by pushing increase activity, sitting upright, limiting pain medications, and using incentive spirometer. However, she has been rather unmoving with regards to her oxygen requirement although there are times where she does not need it. She does not appear to be in any distress. She has no increased work of breathing. She has no suggestive symptoms. She is also had no other cardiac or vital sign abnormalities. She does have chronic lung disease requiring the use of inhalers and is very possible that we have simply stressed out her otherwise poor baseline lung function. Nevertheless, she very well may have an active pneumonia developing, significant atelectasis, or a small PE. Given her medical issues, I will consult with the hospitalist team. We will start with a chest x-ray today. She is not showing any signs of cardiopulmonary instability and will therefore hold on a chest PE, especially with the increasing creatinine. (2) Unilateral primary osteoarthritis, left knee: Current visit: Yes Status: Kami Dutton is status post left knee replacement. She has been having a difficult time with pain control. She does not tolerate most pain medications including hallucination from the hydromorphone and nausea vomiting from the tramadol. However, her activity has been significantly limited due to her pain. She has previously not tolerated oxycodone and morphine and fentanyl in addition to the 2 medications tried this time. As a last resort, I will try a very small amount of diazepam to help with muscle spasms, anxiety, and pain. We may also try hydrocodone if this does not seem to work. We will continue with Tylenol. Unfortunately, due to her rising creatinine, I want to stop the Celebrex. Continue with physical therapy. Continue aspirin 81 mg twice daily at this time. Subjective Patient reports: voiding w/o difficulty, flatus, nausea and vomiting; denies shortness of breath Interval history since last seen: Marija reports significant pain this morning about her left knee. She had better pain control with the hydromorphone yesterday but reports significant hallucinations. Unfortunately, she has had hallucinations and intolerance of other narcotics in the past. Her creatinine also jumped from 1-1.6 and therefore Celebrex was discontinued. She is currently on Tylenol. When she took the tramadol this morning, and alternative from the other medications, she had significant nausea which eventually resulted in emesis. She denies any chest pain or shortness of breath. She denies any fevers or chills. Her primary complaint is pain. However, she has been noted to be hypoxic with pulse oximetry readings as low as 84 and 85. She has required oxygen as high as 4 L. She does seem to respond to deep breathing techniques and incentive spirometry but, for the most part, has remained in an unacceptable zone of oximetry. She denies numbness or tingling. She has been able to ambulate although with some assistance due to pain. Exam Narrative Exam Narrative: Marija is sitting upright in the chair. She is in no acute distress. She is wearing oxygen via nasal cannula. No increased work of breathing. No observed cough. Evaluation of the left leg shows some swelling from the level of the mid thigh down distally. There is some edema in the left leg. There is some mild edema in the right but much less than the left. The left knee has no drainage on the dressing. No significant erythema or signs of infection. Range of motion is limited due to pain. Actively she will only extend to about 50 degrees, keeping the leg in about 80 degrees of flexion. Passively, when she is able to relax, her range of motion is approximately 20 degrees to 95 degrees. No pain to palpation of the calf. Objective Objective Clinical Data: Abnormal lab results 10/17/18 10/17/18 Range/Units 06:40 06:40 WBC 11.90 H (4.4-10.8) k/cumm RBC 3.46 L (4.00-5.20) m/cumm Hgb 9.7 L (12.0-15.5) g/dL Hct 30.5 L (36.0-46.0) % MCHC 31.8 L (32.0-36.0) g/dL MPV 12.3 H (8.0-11.0) fL BUN 39 H D (7-18) mg/dL Creatinine 1.69 H (0.55-1.02) mg/dL Glucose 150 H (70-100) mg/dL Calcium 8.3 L (8.5-10.1) mg/dL Vital Signs Temperature 36.9 C 10/17/18 03:30 Temperature Source Tympanic 10/17/18 03:30 Pulse 68 10/17/18 03:30 Pulse Rhythm Regular 10/17/18 00:30 Respiratory Rate 17 10/17/18 03:30 Respiratory Effort 10/17/18 00:30 Respiratory Depth Normal 10/17/18 00:30 Respiratory Pattern Normal 10/17/18 00:30 Blood Pressure 105/58 L 10/17/18 03:30 Pulse Oximetry 90 L 10/17/18 09:50 Respiratory End-tidal CO2 35 10/14/18 13:00 Oxygen Delivery Method Nasal Cannula 10/17/18 09:50 Oxygen Flow Rate 2 10/17/18 09:50 Pain Level 10 10/17/18 08:18 Comment 10/16/18 20:56 Intake & Output 10/16/18 10/17/18 10/17/18 23:59 11:59 23:59 Intake Total 1540 / 2140 480 / 480 Output Total 300 / 600 250 / 250 Balance 1240 / 1540 230 / 230 Intake: IV 10 Oral 1530 / 2130 480 / 480 Output: Urine 300 / 600 250 / 250 Other: Urine Color Yellow Yellow Urine Appearance Clear Clear Urine Odor Normal Normal Comment VOIDING IN TOILET Stool Size Large Stool Characteristics Soft Formed Brown Voiding Methods Toilet Toilet Laboratory Results WBC 11.90 k/cumm (4.4-10.8) H 10/17/18 06:40 RBC 3.46 m/cumm (4.00-5.20) L 10/17/18 06:40 Hgb 9.7 g/dL (12.0-15.5) L 10/17/18 06:40 Hct 30.5 % (36.0-46.0) L 10/17/18 06:40 MCV 88.2 fL (80-95) 10/17/18 06:40 MCH 28.0 pg (27.0-33.0) 10/17/18 06:40 MCHC 31.8 g/dL (32.0-36.0) L 10/17/18 06:40 RDW 14.0 % (11.7-14.6) 10/17/18 06:40 Plt Count 175 x1000/uL (130-400) 10/17/18 06:40 MPV 12.3 fL (8.0-11.0) H 10/17/18 06:40 Sodium 136 mmol/L (136-145) 10/17/18 06:40 Potassium 4.9 mmol/L (3.5-5.1) D 10/17/18 06:40 Chloride 101 mmol/L (98-107) 10/17/18 06:40 Carbon Dioxide 27.4 mmol/L (21.0-32.0) 10/17/18 06:40 Anion Gap 7.6 mmol/L (3-11) 10/17/18 06:40 BUN 39 mg/dL (7-18) H D 10/17/18 06:40 Creatinine 1.69 mg/dL (0.55-1.02) H 10/17/18 06:40 Estimated GFR/1.73 m2 29.42 (mL/min/1.73m2) 10/17/18 06:40 Glucose 150 mg/dL (70-100) H 10/17/18 06:40 Hemoglobin A1c 8.0 % (4.5-6.2) H 10/14/18 09:00 Calcium 8.3 mg/dL (8.5-10.1) L 10/17/18 06:40 Patient ABO/Rh O Positive 10/14/18 09:00 Antibody Screen Negative 10/14/18 09:00
--- NOTE | 2018-10-17 12:25 | DI.RAD_ITS ---
SYMPTOM/DIAGNOSIS: HYPOXEMIA, CRACKLES PA AND LATERAL CHEST: Comparison is made with 11/02/16. The heart is enlarged and the aorta is tortuous, unchanged. The patient is status post CABG. The lungs are clear. No infiltrate, effusion or pulmonary edema is seen. IMPRESSION: No acute abnormality.
--- NOTE | 2018-10-17 13:02 | DI.VRAD_ITS ---
EXAM: XR Chest, 2 Views EXAM DATE/TIME: 10/17/2018 12:34 PM CLINICAL HISTORY: 78 years old, female; Signs and symptoms; Shortness of breath; Patient HX: Recent knee surgery, ? pe TECHNIQUE: XR of the chest, 2 views. COMPARISON: CR CHEST 2 VIEWS PA,LAT 11/02/2016 4:06 PM FINDINGS: Lungs: Mild opacities have increased in the left base and may represent atelectasis or pneumonia. Pleural space: Unremarkable. No pleural effusion. No pneumothorax. Heart/Mediastinum: Stable cardiac silhouette Vasculature: Tortuous aorta Bones/joints: Status post median sternotomy. Other findings: Surgical device right femoral head IMPRESSION: Mild opacities have increased in the left base and may represent atelectasis or pneumonia. Dictated and Authenticated by: Janey De Jesus MD. Ordering:LAURA Echevarria MD
[2018-10-17] MEDS: Diazepam 2 MG TAB PO (13:44)
[2018-10-17] MEDS: HYDROcodone 5/Acetaminophen 325 TAB PO (13:50)
--- NOTE | 2018-10-17 15:25 | W.MEDCONSULT ---
Date of service: 10/17/18 Time of Service: 15:26 Assessment and Plan (1) Hypoxemia requiring supplemental oxygen: Current visit: Yes Status: Acute Hypoxia in patient with recent Upper Respiratory Illness, prior history of COPD vs. Asthma, and Diastolic CHF on daily diuretic therapy receiving IVFs post-op. Exam abnormal as above. Initial concern regarding Infiltrate vs. atelectasis vs. volume overload. CXR checked and results with potential atelectasis or pneumonia. As patient has had a recent illness untreated may consider addition of antibiotic therapy - has also been in the hospital >48 hours. Note that Mrs. Brennan is afebrile, and with minimal leukocytosis post-op. Will initiate renally dosed Levofloxacin and monitor symptoms clinically, and repeat CBC in the morning. Recommend discontinuation of IVFs as blood pressure appears improved, continuation of home diuretic therapy, as well as daily weights. Incentive Spirometry at bedside. Continue inhaler therapy, duonebs as needed. No evidence of wheezing or acute exacerbation of underlying Chronic Pulmonary Disease. History of Present Illness Chief Complaint: Hypoxia Narrative: Very Pleasant 78 year old woman, admitted on 10/14/2018 for an elective Left sided TKA, being evaluated for mild hypoxia. Mrs. Brennan has a prior medical history of CAD s/p CABG in 2010, Diastolic CHF, MR, HTN, CKD, DM, GERD, and dyslipidemia. There is also note of Asthma vs. COPD in patient with a strong history of second hand tobacco exposure. The patient also has a history of OA, and underwent a successful and uneventful left sided total knee arthroplasty on 10/14. She had been doing well, but prior to her discharge today began exhibiting mild hypoxia and a new oxygen requirement. A subsequent CXR showed evidence of a left sided opacity that had increased in size from prior imaging in 2017, noted to represent pneumonia vs. atelectasis. In discussion with the patient it appears that she was diagnosed with an upper respiratory illness as an outpatient prior to her surgery - actually delaying her procedure initially. No evidence of treatment with antibiotics or steroids by history, but patient reports need for increased use of her inhalers. She also reported a change in her cough and sputum production at the time. Currently she is complaining of a cough, but otherwise appears asymptomatic. Her oxygen saturation decreases to the high 80's, with appropriate response with supplemental O2. Review of Systems Review of Systems All systems reviewed & are unremarkable except as noted in HPI and below PFSH Surgical History Colonoscopy - MAC (~2009) Heart surgery (~2010) Ligation of fallopian tube Rotator Cuff Repair (~2009) Family History Mother Hyperlipidemia Neoplasm Father Essential hypertension Heart disease Hyperlipidemia Sister Diabetes Essential hypertension Depression Heart disease Hyperlipidemia Asthma Sister No problems noted. Brother Diabetes Essential hypertension Heart disease Neoplasm Brother Diabetes Heart disease Myocardial infarction Asthma Brother Heart disease Neoplasm Asthma Grandfather Essential hypertension Heart disease Hyperlipidemia Grandfather Heart disease Hyperlipidemia Grandmother Essential hypertension Heart disease Hyperlipidemia Grandmother Essential hypertension Heart disease Son Diabetes Essential hypertension Depression Hyperlipidemia Son Diabetes Essential hypertension Hyperlipidemia Asthma Daughter Essential hypertension Asthma Daughter Essential hypertension Hyperlipidemia Daughter No problems noted. Daughter Essential hypertension Daughter Blind Deaf MS (multiple sclerosis) MR (mental retardation) Sister Diabetes Essential hypertension Social History highest education level completed: 10th grade current occupation: Homemaker pets and animals: Yes pets and animals: cat(s) frequency: 1-2 times per week Smoking and Tabacco status: Never alcohol intake: never substance use type: does not use wen/moravian: Scientologist special wen needs: No Exam Narrative Exam Narrative: General: Patient appears comfortable, Awake and Alert, NAD Neck: Supple CV: Regular, nontachycardic, S1S2, 3/6 LLSB murmur. Pulmonary: Bibasilar crackles, significantly worse on left base. Otherwise with clear air entry, no wheezing, and lack of rhonchi. Abdomen: + Bowel Sounds, soft, nontender, nondistended Vascular: Mild b/l nonpitting lower extremity edema Psych: Normal mood and affect. Results Last Vital Signs Temp 36.9 C 10/17/18 03:30 Pulse 68 10/17/18 03:30 Resp 17 10/17/18 03:30 BP 105/58 L 10/17/18 03:30 Pulse Ox 90 L 10/17/18 09:50 Labs : 10/17/18 06:40 10/17/18 06:40 Laboratory Results - last 24 hr 10/17/18 10/17/18 06:40 06:40 WBC 11.90 H RBC 3.46 L Hgb 9.7 L Hct 30.5 L MCV 88.2 MCH 28.0 MCHC 31.8 L RDW 14.0 Plt Count 175 MPV 12.3 H Sodium 136 Potassium 4.9 D Chloride 101 Carbon Dioxide 27.4 Anion Gap 7.6 BUN 39 H D Creatinine 1.69 H Estimated GFR/1.73 m2 29.42 Glucose 150 H Calcium 8.3 L Imaging Additional studies: EXAM: XR Chest, 2 Views EXAM DATE/TIME: 10/17/2018 12:34 PM CLINICAL HISTORY: 78 years old, female; Signs and symptoms; Shortness of breath; Patient HX: Recent knee surgery, ? pe TECHNIQUE: XR of the chest, 2 views. COMPARISON: CR CHEST 2 VIEWS PA,LAT 11/02/2016 4:06 PM FINDINGS: Lungs: Mild opacities have increased in the left base and may represent atelectasis or pneumonia. Pleural space: Unremarkable. No pleural effusion. No pneumothorax. Heart/Mediastinum: Stable cardiac silhouette Vasculature: Tortuous aorta Bones/joints: Status post median sternotomy. Other findings: Surgical device right femoral head IMPRESSION: Mild opacities have increased in the left base and may represent atelectasis or pneumonia.
[2018-10-17] MEDS: LEVOFLOXACIN 750 MG/150 ML BAG 100 MG IVPB (16:30)
[2018-10-17] MEDS: ROSUVASTATIN 20 MG TAB 40 MG PO (23:09)
[2018-10-17] MEDS: Insulin Glargine 300 UNITS/3 ML PEN 30 UNITS SC (23:11)
[2018-10-18] MEDS: HYDROcodone 5/Acetaminophen 325 TAB PO ×2 (01:06→05:28)
--- NOTE | 2018-10-18 01:13 | NUR.NOTE ---
Nursing Note: Assisted with moving pt from bedside commode to bed after bed change due to urine incontinence. Found pt crying and upset on commode stating that her knee hurts so bad. Her nurse went for available pain medication, which was 1 tab [place] 5/325. Pt was able to get to bed with FWW and little weight on LLE, 2 assist to lay in bed, I applied her cryocuff and replaced water with water and ice. Her LLE was elevated on one pillow. Pt appears to be in 10/10 pain as evidence by continuous crying, rubbing knee, verbal reports.I suggested her nurse call the to discuss current meds not controlling pain. Pt has no IV pain medication for breakthrough pain.
[2018-10-18 03:19] VITALS: BP 123/71; PULSE 78; RESP 16; TEMP 36.8; O2SAT 92
[2018-10-18 07:18] LABS: Abs Immature Grans 0.02 k/cumm (0.0-0.09); Absolute Basophil Count 0.02 k/cumm (0.0-0.2); Absolute Eosinophil Count 0.29 k/cumm (0.0-0.7); Absolute Monocyte Count 0.99 k/cumm (0.11-0.7); Absolute Neutrophil Count 6.44 k/cumm (1.2-6.7); Basophils % 0.2; Eosinophils % 3.2; HCT 28.9 % (36.0-46.0); HGB 9.2 g/dL (12.0-15.5); Immature Grans % 0.2; Lymphocytes % 13.4; Mean Corp. HGB Concentration 31.8 g/dL (32.0-36.0); Mean Corpuscular Hemoglobin 27.7 pg (27.0-33.0); Mean Platelet Volume 11.7 fL (8.0-11.0); Platelet Count 213 x1000/uL (130-400); RBC 3.32 m/cumm (4.00-5.20); RBC Distribution Width 13.9 % (11.7-14.6); White Blood Cell Count 8.96 k/cumm (4.4-10.8)
[2018-10-18 07:25] LABS: Anion Gap 7.7 mmol/L (3-11); BUN 34 mg/dL (7-18); CO2 27.3 mmol/L (21.0-32.0); CREATININE 1.59 mg/dL (0.55-1.02); Calcium 8.6 mg/dL (8.5-10.1); Chloride 102 mmol/L (98-107); Estimated GFR 31.57 (mL/min/1.73m2); Glucose 94 mg/dL (70-100); Potassium 4.7 mmol/L (3.5-5.1); Sodium 137 mmol/L (136-145)
[2018-10-18 07:30] VITALS: BP 137/60; PULSE 88; RESP 20; TEMP 36.5; O2SAT 91
[2018-10-18] MEDS: NIFEdipine-CR 30 MG TABCR 90 MG PO (07:54)
[2018-10-18] MEDS: Sertraline 50 MG TAB 150 MG PO (07:55)
[2018-10-18] MEDS: Esomeprazole 40 MG CAPCR PO (07:55)
[2018-10-18] MEDS: Acetaminophen 500 MG TAB 1000 MG PO ×3 (07:56→20:47)
[2018-10-18] MEDS: Aspirin E.C. 81 MG TABEC PO ×2 (07:56→20:48)
[2018-10-18] MEDS: Furosemide 40 MG TAB PO (07:56)
[2018-10-18] MEDS: Beta-Carotene(A) w/C,E, & Minerals TAB 1 TAB PO (07:56)
[2018-10-18] MEDS: Losartan 50 MG TAB 100 MG PO (07:56)
[2018-10-18] MEDS: Potassium Chloride 20 MEQ TABCR PO ×2 (07:56→20:48)
[2018-10-18] MEDS: Loratidine 10 MG TAB PO (07:56)
[2018-10-18] MEDS: Multivitamin w/Minerals TAB 1 TAB PO (07:57)
[2018-10-18] MEDS: Metoprolol CR 50 MG TABCR PO (07:57)
[2018-10-18] MEDS: Montelukast 10 MG TAB PO (07:57)
[2018-10-18] MEDS: Insulin Aspart 300 UNITS/3 ML PEN SC ×4 (07:57→17:30)
[2018-10-18] MEDS: Ondansetron 4 MG/2 ML VIAL IVP (08:51)
[2018-10-18] MEDS: Normal Saline Flush 10 ML SYR IV (08:51)
--- NOTE | 2018-10-18 08:58 | PGE_ITS ---
Date of Service Date of service: 10/18/18 Time of Service: 06:57 Assessment and Plan (1) Hypoxemia requiring supplemental oxygen: Current visit: Yes Status: Acute Still requiring 2L of O2. Started on Levaquin although WBC now normal and afebrile. She continues with IS. However, yet to be able to make any improvement with oxygenation. Appreciate hospitalist consultation. Unfort unately, still not able to return home. (2) Unilateral primary osteoarthritis, left knee: Current visit: Yes Status: Acute Continues to have pain s/p L TKA. However, it seems like we are making progress. I have encouraged her to focus on knee extension. Labs are rather benign except for some continued increased creatinine. She has been reluctant to put all of her weight on the knee and I hve encouraged her to work diligently with PT. She seems to be tolerating the Tramadol so we will continue this. Subjective Interval history since last seen: Patient reports to be having increasing pain. She was switched over to Vicodin. However, she does not feel like it is completely relieving her symptoms. She has been able to ambulate although with significant limitations discomfort. She feels like the pain was better controlled on the tramadol. However, she had nausea. She has been on oxygen overnight, 2.5 L. She has had no hypoxic events. She denies any chest pain or shortness of breath. No cough. No fevers or chills. Exam Narrative Exam Narrative: Sitting upright. NAD. Alert. LLE Dressing c/d/i. ROM is limited due to pain. She is reluctant to actively move the knee, but she is able to extend the knee. ROM is 20-90. Breathing without difficulty, no increased work of breathing Objective Objective Clinical Data: Abnormal lab results 10/18/18 10/18/18 Range/Units 06:30 06:30 RBC 3.32 L (4.00-5.20) m/cumm Hgb 9.2 L (12.0-15.5) g/dL Hct 28.9 L (36.0-46.0) % MCHC 31.8 L (32.0-36.0) g/dL MPV 11.7 H (8.0-11.0) fL Absolute Monocytes 0.99 H (0.11-0.7) k/cumm BUN 34 H (7-18) mg/dL Creatinine 1.59 H (0.55-1.02) mg/dL Vital Signs Temperature 36.5 C 10/18/18 07:30 Temperature Source Tympanic 10/18/18 07:30 Pulse 88 10/18/18 07:30 Pulse Rhythm Regular 10/18/18 07:47 Respiratory Rate 20 10/18/18 07:30 Respiratory Effort 10/18/18 07:47 Respiratory Depth Normal 10/18/18 07:47 Respiratory Pattern Normal 10/18/18 07:47 Blood Pressure 137/60 10/18/18 07:30 Pulse Oximetry 91 L 10/18/18 07:30 Respiratory End-tidal CO2 35 10/14/18 13:00 Oxygen Delivery Method Nasal Cannula 10/18/18 07:30 Oxygen Flow Rate 2.5 10/18/18 07:30 Pain Level 5 10/18/18 05:28 Comment 10/16/18 20:56 Intake & Output 10/17/18 10/17/18 10/18/18 11:59 23:59 11:59 Intake Total 490 / 880 390 / 880 Output Total 1000 / 2950 1950 / 2950 1000 / 1000 Balance -510 / -2070 -1560 / -2070 -1000 / -1000 Weight 80.2 kg Intake: IV 10 / 160 150 / 160 Oral 480 / 720 240 / 720 Output: Urine 1000 / 2950 1950 / 2950 1000 / 1000 Other: Urine Color Yellow Yellow Yellow Urine Appearance Clear Clear Clear Urine Odor Normal Normal Normal Voiding Methods Toilet Toilet Bedside Commode Incontinent Laboratory Results WBC 8.96 k/cumm (4.4-10.8) 10/18/18 06:30 RBC 3.32 m/cumm (4.00-5.20) L 10/18/18 06:30 Hgb 9.2 g/dL (12.0-15.5) L 10/18/18 06:30 Hct 28.9 % (36.0-46.0) L 10/18/18 06:30 MCV 87.0 fL (80-95) 10/18/18 06:30 MCH 27.7 pg (27.0-33.0) 10/18/18 06:30 MCHC 31.8 g/dL (32.0-36.0) L 10/18/18 06:30 RDW 13.9 % (11.7-14.6) 10/18/18 06:30 Plt Count 213 x1000/uL (130-400) 10/18/18 06:30 MPV 11.7 fL (8.0-11.0) H 10/18/18 06:30 Immature Gran % 0.2 10/18/18 06:30 Neutrophils % 72.0 10/18/18 06:30 Lymphocytes % 13.4 10/18/18 06:30 Monocytes % 11.0 10/18/18 06:30 Eosinophils % 3.2 10/18/18 06:30 Basophils % 0.2 10/18/18 06:30 Absolute Neutrophils 6.44 k/cumm (1.2-6.7) 10/18/18 06:30 Absolute Lymphocytes 1.20 k/cumm (1.2-3.4) 10/18/18 06:30 Absolute Monocytes 0.99 k/cumm (0.11-0.7) H 10/18/18 06:30 Absolute Eosinophils 0.29 k/cumm (0.0-0.7) 10/18/18 06:30 Absolute Basophils 0.02 k/cumm (0.0-0.2) 10/18/18 06:30 Sodium 137 mmol/L (136-145) 10/18/18 06:30 Potassium 4.7 mmol/L (3.5-5.1) 10/18/18 06:30 Chloride 102 mmol/L (98-107) 10/18/18 06:30 Carbon Dioxide 27.3 mmol/L (21.0-32.0) 10/18/18 06:30 Anion Gap 7.7 mmol/L (3-11) 10/18/18 06:30 BUN 34 mg/dL (7-18) H 10/18/18 06:30 Creatinine 1.59 mg/dL (0.55-1.02) H 10/18/18 06:30 Estimated GFR/1.73 m2 31.57 (mL/min/1.73m2) 10/18/18 06:30 Glucose 94 mg/dL (70-100) D 10/18/18 06:30 Hemoglobin A1c 8.0 % (4.5-6.2) H 10/14/18 09:00 Calcium 8.6 mg/dL (8.5-10.1) 10/18/18 06:30 Patient ABO/Rh O Positive 10/14/18 09:00 Antibody Screen Negative 10/14/18 09:00
[2018-10-18] MEDS: Budesonide/Formoterol 80/4.5 6.9 GM 60 PUFF INH IH ×2 (10:01→20:48)
[2018-10-18] MEDS: traMADol 50 MG TAB PO (11:02)
[2018-10-18 11:15] VITALS: O2SAT 94
--- NOTE | 2018-10-18 14:54 | PT.INTREAT ---
Date of service: 10/18/18 Time of Service: 02:25 PT Notes Inpatient Physical Therapy Treatment Note [facility] Date: 10/18/18 PRECAUTIONS:Fall SUBJECTIVE: Pt reports that today she feels somewhat better and is not experiencing as much discomfort. OBJECTIVE: Sit-stand: CGA Stand-sit: CGA GAIT Assistive Device: FWW Weight bearing: WBAT Assist: CGA Distance: 30ftx2 THEREX: Pt completed LE strengthening ther ex as per flow sheet while in the seated position. ASSESSMENT: Pt tolerated today's session fairly well. PLAN: Cont as per PT POC. TREATMENT CODE/TIME: 2:25-2:45 (20) TA
--- NOTE | 2018-10-18 15:20 | CHAPLAIN ---
Lorin was alone today, telling me that family members will likely not be traveling in the snowy weather to visit. She is from [place], but lived for many years in [place]. She seems to have a very supportive family. Lorin is [employer] and has been visited by the priests here from [facility]
--- NOTE | 2018-10-18 15:26 | PT.INTREAT ---
Date of service: 10/18/18 Time of Service: 15:26 PT Notes 10/18/18 AM Session # 1: SUBJECTIVE: Lorin stating she is feeling depressed and discouraged with her progress. She just wants to get better soon and go home and she was not planning on having all of these breathing issues. OBJECTIVE: Pt is seated in her recliner crying. She is not in pain but feeling down. She is agreeable to PT treatment. TRANSFERS Sit to stand: CGA Stand to sit: CGA GAIT Device: FWW Weight bearing: WBAT L Assist: CGA Distance: 50'x2 Deviation: 3 L NC, decreased weight bearing through the L LE. VITALS: At rest 94%, 90 b/m. Post gait on 3 L NC 94%, 91 b/m. THEREX:Pt completes light seated LE strengthening exercises as noted on flow sheet. See flow sheet for specifics. ASSESSMENT: Pt requiring cueing throughout gait today to normalize her gait mechanics and increase her weight bearing through the L LE. She initially is performing a hopping type pattern with very little weight bearing through the left. After cues she is able to weight bear through the left although continues to have step to pattern. She has improvements in comfort and mood post session. PLAN: Continue current POC progressing with established goals. Session # 1: 11:15-1:45 [id number], [id number] Darcy Rene PTA
--- NOTE | 2018-10-18 15:46 | PDOC.CMPRO ---
Care Management Progress Note S/O: Lorin was sitting up in her chair each time CM entered the room talking on her telephone. CM was unable to consult with Lorin the three times attempted. No change to overall plan. A: Lorin is a 78 year old female admitted for left total knee who experienced a drop in her oxygen saturation on day of discharge. P: Marija will be discharged home when medically ready with VNA supports through [facility]; PT/OT/RN. Her family will retrieve shower chair coordinated by this through [facility] at Patient and MD request. Referral to [facility] for CM, [facility] and additional DME request of [employer] faxed. Per RT, she will return home on new O2 as well. Lorin will follow up with Dr. Auguste and her plan of care as prescribed including activity limitations and medication recommendations. She will transport via private vehicle with family.
[2018-10-18 15:58] VITALS: BP 111/65; PULSE 74; RESP 19; TEMP 36.5; O2SAT 90
--- NOTE | 2018-10-18 16:02 | CMPROGNOTE_ITS ---
Care Management Progress Note S/O: Lorin was sitting up in her chair each time CM entered the room talking on her telephone. CM was unable to consult with Lorin the three times attempted. No change to overall plan. A: Lorin is a 78 year old female admitted for left total knee who experienced a drop in her oxygen saturation on day of discharge. P: Marija will be discharged home when medically ready with VNA supports through [facility]; PT/OT/RN. Her family will retrieve shower chair coordinated by this through [facility] at Patient and MD request. Referral to [facility] for CM, [facility] and additional DME request of [employer] faxed. Per RT, she will return home on new O2 as well. Lorin will follow up with Dr. Auguste and her plan of care as prescribed including activity limitations and medication recommendations. She will transport via private vehicle with family.
--- NOTE | 2018-10-18 16:34 | W.PM.PROGNOT ---
Date of Service Date of service: 10/18/18 Time of Service: 16:34 Assessment and Plan (1) Hypoxemia requiring supplemental oxygen: Current visit: Yes Status: Acute Hypoxia in patient with recent Upper Respiratory Illness, prior history of COPD vs. Asthma, and abnormal exam. CXR with likely infiltrate by initial VRad read. Although official read of CXR today with no acute abnormality, patient clearly has an abnormal exam. Continue renally dosed Levofloxacin, IS, and duonebs, with added steroid therapy given mild wheezing on exam this morning. Attempt at ABG unsuccessful due to patient tolerance. Subjective Interval history since last seen: Very Pleasant 78 year old woman, admitted on 10/14/2018 for an elective Left sided TKA, being evaluated for mild hypoxia. Mrs. Brennan has a prior medical history of CAD s/p CABG in 2010, Diastolic CHF, MR, HTN, CKD, DM, GERD, and dyslipidemia. There is also note of Asthma vs. COPD in patient with a strong history of second hand tobacco exposure. The patient also has a history of OA, and underwent a successful and uneventful left sided total knee arthroplasty on 10/14. She had been doing well, but prior to her discharge today began exhibiting mild hypoxia and a new oxygen requirement. A subsequent CXR showed evidence of a left sided opacity that had increased in size from prior imaging in 2017, noted to represent pneumonia vs. atelectasis. In discussion with the patient it appears that she was diagnosed with an upper respiratory illness as an outpatient prior to her surgery - actually delaying her procedure initially. No evidence of treatment with antibiotics or steroids by history, but patient reports need for increased use of her inhalers. She also reported a change in her cough and sputum production at the time. Currently she is complaining of a cough, but otherwise appears asymptomatic. She has a low level oxygen requirement, but is hypoxic without supplemental O2. No overnight events reported. Remains afebrile. Exam Narrative Exam Narrative: General: Patient appears comfortable, Awake and Alert, NAD Neck: Supple CV: Regular, nontachycardic, S1S2, 3/6 LLSB murmur. Pulmonary: Left base crackles, mild wheezing limited to the RLL. Abdomen: + Bowel Sounds, soft, nontender, nondistended Vascular: Mild b/l nonpitting lower extremity edema Psych: Normal mood and affect. Objective Objective Clinical Data: Abnormal lab results 10/18/18 10/18/18 Range/Units 06:30 06:30 RBC 3.32 L (4.00-5.20) m/cumm Hgb 9.2 L (12.0-15.5) g/dL Hct 28.9 L (36.0-46.0) % MCHC 31.8 L (32.0-36.0) g/dL MPV 11.7 H (8.0-11.0) fL Absolute Monocytes 0.99 H (0.11-0.7) k/cumm BUN 34 H (7-18) mg/dL Creatinine 1.59 H (0.55-1.02) mg/dL Vital Signs Temperature 36.5 C 10/18/18 15:58 Temperature Source Tympanic 10/18/18 15:58 Pulse 74 10/18/18 15:58 Pulse Rhythm Regular 10/18/18 07:47 Respiratory Rate 19 10/18/18 15:58 Respiratory Effort 10/18/18 07:47 Respiratory Depth Normal 10/18/18 07:47 Respiratory Pattern Normal 10/18/18 07:47 Blood Pressure 111/65 10/18/18 15:58 Pulse Oximetry 90 L 10/18/18 15:58 Respiratory End-tidal CO2 35 10/14/18 13:00 Oxygen Delivery Method Nasal Cannula 10/18/18 15:58 Oxygen Flow Rate 2 10/18/18 15:58 Pain Level 5 10/18/18 11:02 Comment 10/16/18 20:56 Intake & Output 10/17/18 10/18/18 10/18/18 23:59 11:59 23:59 Intake Total 390 / 880 380 / 1430 1050 / 1430 Output Total 1950 / 2950 1400 / 1600 200 / 1600 Balance -1560 / -2070 -1020 / -170 850 / -170 Weight 80.2 kg Intake: IV 150 / 160 10 / 10 Oral 240 / 720 370 / 1420 1050 / 1420 Output: Urine 1950 / 2950 1400 / 1600 200 / 1600 Other: Urine Color Yellow Yellow Pale Yellow Urine Appearance Clear Clear Clear Urine Odor Normal Normal Normal Voiding Methods Toilet Bedside Commode Bedside Commode Laboratory Results WBC 8.96 k/cumm (4.4-10.8) 10/18/18 06:30 RBC 3.32 m/cumm (4.00-5.20) L 10/18/18 06:30 Hgb 9.2 g/dL (12.0-15.5) L 10/18/18 06:30 Hct 28.9 % (36.0-46.0) L 10/18/18 06:30 MCV 87.0 fL (80-95) 10/18/18 06:30 MCH 27.7 pg (27.0-33.0) 10/18/18 06:30 MCHC 31.8 g/dL (32.0-36.0) L 10/18/18 06:30 RDW 13.9 % (11.7-14.6) 10/18/18 06:30 Plt Count 213 x1000/uL (130-400) 10/18/18 06:30 MPV 11.7 fL (8.0-11.0) H 10/18/18 06:30 Immature Gran % 0.2 10/18/18 06:30 Neutrophils % 72.0 10/18/18 06:30 Lymphocytes % 13.4 10/18/18 06:30 Monocytes % 11.0 10/18/18 06:30 Eosinophils % 3.2 10/18/18 06:30 Basophils % 0.2 10/18/18 06:30 Absolute Neutrophils 6.44 k/cumm (1.2-6.7) 10/18/18 06:30 Absolute Lymphocytes 1.20 k/cumm (1.2-3.4) 10/18/18 06:30 Absolute Monocytes 0.99 k/cumm (0.11-0.7) H 10/18/18 06:30 Absolute Eosinophils 0.29 k/cumm (0.0-0.7) 10/18/18 06:30 Absolute Basophils 0.02 k/cumm (0.0-0.2) 10/18/18 06:30 Sodium 137 mmol/L (136-145) 10/18/18 06:30 Potassium 4.7 mmol/L (3.5-5.1) 10/18/18 06:30 Chloride 102 mmol/L (98-107) 10/18/18 06:30 Carbon Dioxide 27.3 mmol/L (21.0-32.0) 10/18/18 06:30 Anion Gap 7.7 mmol/L (3-11) 10/18/18 06:30 BUN 34 mg/dL (7-18) H 10/18/18 06:30 Creatinine 1.59 mg/dL (0.55-1.02) H 10/18/18 06:30 Estimated GFR/1.73 m2 31.57 (mL/min/1.73m2) 10/18/18 06:30 Glucose 94 mg/dL (70-100) D 10/18/18 06:30 Hemoglobin A1c 8.0 % (4.5-6.2) H 10/14/18 09:00 Calcium 8.6 mg/dL (8.5-10.1) 10/18/18 06:30 Patient ABO/Rh O Positive 10/14/18 09:00 Antibody Screen Negative 10/14/18 09:00
[2018-10-18 20:08] VITALS: BP 125/73; PULSE 81; RESP 19; TEMP 36.9; O2SAT 94
[2018-10-18] MEDS: ROSUVASTATIN 20 MG TAB 40 MG PO (20:48)
[2018-10-18] MEDS: predniSONE 20 MG TAB 40 MG PO (20:48)
[2018-10-18] MEDS: Diazepam 2 MG TAB PO (21:28)
[2018-10-18] MEDS: Insulin Glargine 300 UNITS/3 ML PEN 30 UNITS SC (21:29)
[2018-10-19] VITALS (8 sets, daily range): BP systolic 109–137; BP diastolic 60–82; PULSE 71–82; RESP 16–20; TEMP 36.2–37.6; O2SAT 92–96
[2018-10-19] MEDS: traMADol 50 MG TAB PO ×3 (00:46→20:00)
[2018-10-19] MEDS: NIFEdipine-CR 30 MG TABCR 90 MG PO (08:19)
[2018-10-19] MEDS: Losartan 50 MG TAB 100 MG PO (08:20)
[2018-10-19] MEDS: Sertraline 50 MG TAB 150 MG PO (08:20)
[2018-10-19] MEDS: Potassium Chloride 20 MEQ TABCR PO ×2 (08:20→20:00)
[2018-10-19] MEDS: Beta-Carotene(A) w/C,E, & Minerals TAB 1 TAB PO (08:20)
[2018-10-19] MEDS: Loratidine 10 MG TAB PO (08:20)
[2018-10-19] MEDS: Esomeprazole 40 MG CAPCR PO (08:21)
[2018-10-19] MEDS: Acetaminophen 500 MG TAB 1000 MG PO ×3 (08:21→20:00)
[2018-10-19] MEDS: Furosemide 40 MG TAB PO (08:21)
[2018-10-19] MEDS: Aspirin E.C. 81 MG TABEC PO ×2 (08:21→20:00)
[2018-10-19] MEDS: Montelukast 10 MG TAB PO (08:21)
[2018-10-19] MEDS: Multivitamin w/Minerals TAB 1 TAB PO (08:21)
[2018-10-19] MEDS: Metoprolol CR 50 MG TABCR PO (08:21)
[2018-10-19] MEDS: Insulin Aspart 300 UNITS/3 ML PEN SC ×6 (08:21→17:00)
[2018-10-19] MEDS: predniSONE 20 MG TAB 40 MG PO ×2 (08:21→20:00)
--- NOTE | 2018-10-19 08:22 | PT.INTREAT ---
Date of service: 10/19/18 Time of Service: 07:50 PT Notes [facility] Date: 10/19/18 PRECAUTIONS:Fall SUBJECTIVE: Lorin states that she's hopeful she can return home today. Her pain is well managed and she feels that she's getting around better. OBJECTIVE: Pain: 4/10 Mobility: Supine-sit: supervision with HOB at 30 degrees Sit-stand: Supervision Stand-sit: Supervision GAIT Assistive Device: FWW Weight bearing: WBAT Assist: CGA Distance: 100' Deviation: Patient requires consistent cues for gait mechanics, particularly for left heel strike. During course of ambulation, patient was able to toilet independently, including self-care and donning/doffing undergarments while standing at FWW. THEREX: Focused on P/AA/AROM into extension. Patient begins at approx 30 degrees knee flexion today, easily tolerating 95 degrees knee extension with moderate end-range pain. She completed quad sets with tactile feedback to the popliteal fossa and continuous cues for maximal effort. Also introduced terminal knee extension exercises standing at the walker, where she tolerates approx -10 degrees extension. She received gentle overpressure with second set of quad sets, then completed passive knee extension x 4 minutes with ankle supported on towel roll. Post-rx, ROM allows -10 extension to 95 flexion. Reviewed need to avoid supporting the knee in flexed position, and instructed patient in passive stretching into extension for 3-5 minutes, 3x/day. Full therex program can be found noted in flowsheet. Post-rx, she reports pain reduction and reduced feeling of stiffness. ASSESSMENT: Significant improvement in activity tolerance and independence. She'll benefit from increased passive stretching to the left knee to maximize extension, and was encouraged to participate in frequent brief bouts of walking to reduce stiffness. PLAN: Continue progressing toward established goals. Patient will benefit from initiation of HH services upon discharge to maximize outcomes, as she is at high risk for developing knee flexion contracture. TREATMENT CODE/TIME: 7:50-8:20 (30 minutes) [id number], [id number]
--- NOTE | 2018-10-19 08:51 | CMPROGNOTE_ITS ---
Care Management Progress Note S/O: Marija was sitting up in her chair when CM met with her. She remains pleasant in interaction though is looking forward to returning home. Dr. Up reports possible discharge for tomorrow; Dr. Auguste confirmed. Lorin will likely return home tomorrow with no change to overall plan. A: Lorin is a 78 year old female admitted for left total knee who experienced a drop in her oxygen saturation on day of discharge. P: Marija will be discharged home when medically ready with VNA supports through [facility]; PT/OT/RN. Her family will retrieve shower chair coordinated by this through [facility] at Patient and MD request. Referral to [facility] for CM, [facility] and additional DME request of [employer] faxed. Per RT, she will return home on new O2 as well. Lorin will follow up with Dr. Auguste and her plan of care as prescribed including activity limitations and medication recommendations. She will transport via private vehicle with family.
[2018-10-19] MEDS: Budesonide/Formoterol 80/4.5 6.9 GM 60 PUFF INH IH ×2 (09:06→20:00)
--- NOTE | 2018-10-19 09:26 | PHARADMIT ---
Admission Pharmacy Clinical Review Left KNEE DJD Code Status Full Code Current Weight Wgt-80.1 kg Renally Cleared and Narrow Therapeutic Index Meds CrCl~ 21.6 mL/min Meds-OK QTc Value / Action Taken QTc-439 na BP Control, Fever BP- 129/68 Electrolytes reviewed Na-137 K+4.7 DVT Prophylaxis ASA, TEDS, SCDs Opiate Usage / Scheduled Bowel Regimen Ordered Yes Yes Plt/SCr for Heparin / Enoxaparin Plts- 213 SCr- 1.59 INR for Warfarin NA H/H stable, WBC/Bands H&H- 9.2/28.9 WBC- 8.96 Antibiotic appropriateness Levaquin, Cultures and Sensitivities none Surgical ABX d/c within 24 hr NA DM control / Insulin Dosing BG- 94 JuA5s-6.0 Aspart, Glarginne Heart Failure (Check EF%) (KENNETH's, B-Block, Diuretics) Lasix.Toprol-XL, Losartan, NTG, Nifedipine IV to PO Switch No Home Meds Reviewed Yes Home Meds Not Ordered Diflucan, Victoza, Meloxicam, MiralAX Comments
[2018-10-19] MEDS: LEVOFLOXACIN 750 MG/150 ML BAG 100 MG IVPB (13:58)
[2018-10-19] MEDS: Normal Saline Flush 10 ML SYR IV (13:59)
--- NOTE | 2018-10-19 14:36 | W.PM.PROGNOT ---
Date of Service Date of service: 10/19/18 Time of Service: 14:37 Assessment and Plan (1) Hypoxemia requiring supplemental oxygen: Current visit: Yes Status: Acute Hypoxia in patient with recent URI, prior history of COPD vs. Asthma, and abnormal exam. CXR with likely infiltrate by initial [facility]Rad read. Although official read of CXR with no acute abnormality, patient clearly had an abnormal exam. Appears to be improving. Continue renally dosed Levofloxacin, IS, and duonebs, with added steroid therapy given mild wheezing on prior exam. Attempt at ABG unsuccessful due to patient tolerance. Suspect will be ready for discharge by tomorrow morning. Subjective Interval history since last seen: Very Pleasant 78 year old woman, admitted on 10/14/2018 for an elective Left sided TKA, being evaluated for mild hypoxia. Mrs. Brennan has a prior medical history of CAD s/p CABG in 2010, Diastolic CHF, MR, HTN, CKD, DM, GERD, and dyslipidemia. There is also note of Asthma vs. COPD in patient with a strong history of second hand tobacco exposure. The patient also has a history of OA, and underwent a successful and uneventful left sided total knee arthroplasty on 10/14. She had been doing well, but prior to her discharge today began exhibiting mild hypoxia and a new oxygen requirement. A subsequent CXR showed evidence of a left sided opacity that had increased in size from prior imaging in 2017, noted to represent pneumonia vs. atelectasis. In discussion with the patient it appears that she was diagnosed with an upper respiratory illness as an outpatient prior to her surgery - actually delaying her procedure initially. No evidence of treatment with antibiotics or steroids by history, but patient reported need for increased use of her inhalers. She also reported a change in her cough and sputum production at the time. The patient appears improved today. Still requiring supplemental Oxygen. No overnight events reported. Remains afebrile. Exam Narrative Exam Narrative: General: Patient appears comfortable, Awake and Alert, NAD Neck: Supple CV: Regular, nontachycardic, S1S2, 3/6 LLSB murmur. Pulmonary: Left basilar crackles improved, mild wheezing resolved. Abdomen: + Bowel Sounds, soft, nontender, nondistended Vascular: Mild b/l nonpitting lower extremity edema Psych: Normal mood and affect. Objective Objective Clinical Data: Vital Signs Temperature 36.9 C 10/19/18 11:45 Temperature Source Tympanic 10/19/18 11:45 Pulse 75 10/19/18 11:45 Pulse Rhythm Regular 10/19/18 08:27 Respiratory Rate 18 10/19/18 11:45 Respiratory Effort 10/19/18 08:27 Respiratory Depth Normal 10/19/18 08:27 Respiratory Pattern Normal 10/19/18 08:27 Blood Pressure 117/63 10/19/18 11:45 Pulse Oximetry 96 10/19/18 11:45 Respiratory End-tidal CO2 35 10/14/18 13:00 Oxygen Delivery Method Nasal Cannula 10/19/18 11:45 Oxygen Flow Rate 2.5 10/19/18 11:45 Pain Level 4 10/19/18 13:58 Comment 10/16/18 20:56 Intake & Output 10/18/18 10/19/18 10/19/18 23:59 11:59 23:59 Intake Total 1590 / 1970 590 / 830 240 / 830 Output Total 800 / 2200 150 / 150 Balance 790 / -230 440 / 680 240 / 680 Weight 80.1 kg Intake: Oral 1590 / 1960 590 / 830 240 / 830 Output: Urine 800 / 2200 150 / 150 Other: Urine Color Yellow Yellow Urine Appearance Clear Clear Urine Odor Normal Voiding Methods Toilet Bedside Commode Incontinent Laboratory Results WBC 8.96 k/cumm (4.4-10.8) 10/18/18 06:30 RBC 3.32 m/cumm (4.00-5.20) L 10/18/18 06:30 Hgb 9.2 g/dL (12.0-15.5) L 10/18/18 06:30 Hct 28.9 % (36.0-46.0) L 10/18/18 06:30 MCV 87.0 fL (80-95) 10/18/18 06:30 MCH 27.7 pg (27.0-33.0) 10/18/18 06:30 MCHC 31.8 g/dL (32.0-36.0) L 10/18/18 06:30 RDW 13.9 % (11.7-14.6) 10/18/18 06:30 Plt Count 213 x1000/uL (130-400) 10/18/18 06:30 MPV 11.7 fL (8.0-11.0) H 10/18/18 06:30 Immature Gran % 0.2 10/18/18 06:30 Neutrophils % 72.0 10/18/18 06:30 Lymphocytes % 13.4 10/18/18 06:30 Monocytes % 11.0 10/18/18 06:30 Eosinophils % 3.2 10/18/18 06:30 Basophils % 0.2 10/18/18 06:30 Absolute Neutrophils 6.44 k/cumm (1.2-6.7) 10/18/18 06:30 Absolute Lymphocytes 1.20 k/cumm (1.2-3.4) 10/18/18 06:30 Absolute Monocytes 0.99 k/cumm (0.11-0.7) H 10/18/18 06:30 Absolute Eosinophils 0.29 k/cumm (0.0-0.7) 10/18/18 06:30 Absolute Basophils 0.02 k/cumm (0.0-0.2) 10/18/18 06:30 Sodium 137 mmol/L (136-145) 10/18/18 06:30 Potassium 4.7 mmol/L (3.5-5.1) 10/18/18 06:30 Chloride 102 mmol/L (98-107) 10/18/18 06:30 Carbon Dioxide 27.3 mmol/L (21.0-32.0) 10/18/18 06:30 Anion Gap 7.7 mmol/L (3-11) 10/18/18 06:30 BUN 34 mg/dL (7-18) H 10/18/18 06:30 Creatinine 1.59 mg/dL (0.55-1.02) H 10/18/18 06:30 Estimated GFR/1.73 m2 31.57 (mL/min/1.73m2) 10/18/18 06:30 Glucose 94 mg/dL (70-100) D 10/18/18 06:30 Hemoglobin A1c 8.0 % (4.5-6.2) H 10/14/18 09:00 Calcium 8.6 mg/dL (8.5-10.1) 10/18/18 06:30 Patient ABO/Rh O Positive 10/14/18 09:00 Antibody Screen Negative 10/14/18 09:00
--- NOTE | 2018-10-19 15:04 | PT.INTREAT ---
Date of service: 10/19/18 Time of Service: 11:10 PT Notes [facility] Date: 10/19/18 PRECAUTIONS:Fall SUBJECTIVE: Lorin states that she's feeling good. She denies pain. OBJECTIVE: Mobility: Supine-sit: supervision with HOB at 30 degrees Sit-stand: Supervision Stand-sit: Supervision GAIT Assistive Device: FWW Weight bearing: WBAT Assist: supervision, and assistance for managing O2 tank Distance: 120' Deviation: SaO2 was monitored throughout. Patient ambulates on 2L supplemental O2 via nasal cannula, with resting SaO2 at 98%. During ambulation, she maintains at 94% or above, without HUTTON. THEREX:Patient was instructed in therex program as noted on flowsheet. She completed quad sets with gentle overpressure into extension, tolerating -5 degrees. We reviewed passive extension exercises, and she remained in chair with heel propped post-treatment. I returned to her room 2x during the afternoon to reposition for passive extension stretching, all with good tolerance. ASSESSMENT: Significant improvement in activity tolerance and independence. Will continue with gait and transfer training, as well as progressive ambulation and therex to improve strength and ROM. PLAN: Continue progressing toward established goals. Patient will benefit from initiation of HH services upon discharge to maximize outcomes, as she is at high risk for developing knee flexion contracture. TREATMENT CODE/TIME: :10-11:40 (30 minutes) [id number], [id number]
--- NOTE | 2018-10-19 17:09 | PGE_ITS ---
Date of Service Date of service: 10/19/18 Time of Service: 17:08 Assessment and Plan (1) Unilateral primary osteoarthritis, left knee: Current visit: No Status: Acute Marija is a 78-year-old status post left knee replacement who unfortunately has had a complicated postoperative course with hypoxia and the need for oxygen. There is some mild increased density seen within the lower lobe and therefore she was started on antibiotic for concern of pneumonia. Her white count has been stable and she has been afebrile. In general, she looks much better today. She is much more independent with mobilization. She is satting in the mid to high 90s on 2-1/2 L and therefore we should start titrating her down to 0. I appreciate hospitalist involvement and will await the recommendations will likely discharge home tomorrow. Subjective Patient reports: feels better Interval history since last seen: Marija is in much better spirits today. She has much less pain about the left knee. She has been able to ambulate multiple times a day. She has no complaints of chest pain, shortness of breath, coughing. She still is requiring some oxygen but does not report any episodes of dropping low enough to alarm. She was able to sleep last night. Exam Narrative Exam Narrative: Evaluation of the left knee shows some swelling and bogginess about the knee. No erythema. Is able to actively extend about 10 degrees and flex to 95 degrees. The knee is stable to varus and valgus stress. Objective Objective Clinical Data: Vital Signs Temperature 36.6 C 10/19/18 16:04 Temperature Source Tympanic 10/19/18 16:04 Pulse 76 10/19/18 16:04 Pulse Rhythm Regular 10/19/18 08:27 Respiratory Rate 18 10/19/18 16:04 Respiratory Effort 10/19/18 08:27 Respiratory Depth Normal 10/19/18 08:27 Respiratory Pattern Normal 10/19/18 08:27 Blood Pressure 122/61 10/19/18 16:04 Pulse Oximetry 95 10/19/18 16:04 Respiratory End-tidal CO2 35 10/14/18 13:00 Oxygen Delivery Method Nasal Cannula 10/19/18 16:04 Oxygen Flow Rate 2.5 10/19/18 16:04 Pain Level 4 10/19/18 13:58 Comment 10/16/18 20:56 Intake & Output 0210/19/18 10/19/18 23:59 11:59 23:59 Intake Total 1590 / 1970 590 / 1280 690 / 1280 Output Total 800 / 2200 150 / 150 Balance 790 / -230 440 / 1130 690 / 1130 Weight 80.1 kg Intake: Oral 1590 / 1959 590 / 1280 690 / 1280 Output: Urine 800 / 2200 150 / 150 Other: Urine Color Yellow Yellow Urine Appearance Clear Clear Urine Odor Normal Comment No documentation; per OUTDOOR STUDIES DIRECTOR Sue, pt up to commode x2 with PT. No documentation. Pt poor historian regarding voiding. Voiding Methods Toilet Bedside Commode Bedside Commode Incontinent Laboratory Results WBC 8.96 k/cumm (4.4-10.8) 10/18/18 06:30 RBC 3.32 m/cumm (4.00-5.20) L 10/18/18 06:30 Hgb 9.2 g/dL (12.0-15.5) L 10/18/18 06:30 Hct 28.9 % (36.0-46.0) L 10/18/18 06:30 MCV 87.0 fL (80-95) 10/18/18 06:30 MCH 27.7 pg (27.0-33.0) 10/18/18 06:30 MCHC 31.8 g/dL (32.0-36.0) L 10/18/18 06:30 RDW 13.9 % (11.7-14.6) 10/18/18 06:30 Plt Count 213 x1000/uL (130-400) 10/18/18 06:30 MPV 11.7 fL (8.0-11.0) H 10/18/18 06:30 Immature Gran % 0.2 10/18/18 06:30 Neutrophils % 72.0 10/18/18 06:30 Lymphocytes % 13.4 10/18/18 06:30 Monocytes % 11.0 10/18/18 06:30 Eosinophils % 3.2 10/18/18 06:30 Basophils % 0.2 10/18/18 06:30 Absolute Neutrophils 6.44 k/cumm (1.2-6.7) 10/18/18 06:30 Absolute Lymphocytes 1.20 k/cumm (1.2-3.4) 10/18/18 06:30 Absolute Monocytes 0.99 k/cumm (0.11-0.7) H 10/18/18 06:30 Absolute Eosinophils 0.29 k/cumm (0.0-0.7) 10/18/18 06:30 Absolute Basophils 0.02 k/cumm (0.0-0.2) 10/18/18 06:30 Sodium 137 mmol/L (136-145) 10/18/18 06:30 Potassium 4.7 mmol/L (3.5-5.1) 10/18/18 06:30 Chloride 102 mmol/L (98-107) 10/18/18 06:30 Carbon Dioxide 27.3 mmol/L (21.0-32.0) 10/18/18 06:30 Anion Gap 7.7 mmol/L (3-11) 10/18/18 06:30 BUN 34 mg/dL (7-18) H 10/18/18 06:30 Creatinine 1.59 mg/dL (0.55-1.02) H 10/18/18 06:30 Estimated GFR/1.73 m2 31.57 (mL/min/1.73m2) 10/18/18 06:30 Glucose 94 mg/dL (70-100) D 10/18/18 06:30 Hemoglobin A1c 8.0 % (4.5-6.2) H 10/14/18 09:00 Calcium 8.6 mg/dL (8.5-10.1) 10/18/18 06:30 Patient ABO/Rh O Positive 10/14/18 09:00 Antibody Screen Negative 10/14/18 09:00
[2018-10-19] MEDS: Insulin Glargine 300 UNITS/3 ML PEN 30 UNITS SC (21:19)
[2018-10-19] MEDS: ROSUVASTATIN 20 MG TAB 40 MG PO (21:19)
[2018-10-20] MEDS: traMADol 50 MG TAB PO ×2 (01:46→11:50)
[2018-10-20 02:55] VITALS: BP 173/76; PULSE 88; RESP 18; TEMP 36.6; O2SAT 96
[2018-10-20] MEDS: Sertraline 50 MG TAB 150 MG PO (08:21)
[2018-10-20] MEDS: Losartan 50 MG TAB 100 MG PO (08:21)
[2018-10-20] MEDS: Beta-Carotene(A) w/C,E, & Minerals TAB 1 TAB PO (08:21)
[2018-10-20] MEDS: predniSONE 20 MG TAB 40 MG PO (08:22)
[2018-10-20] MEDS: Esomeprazole 40 MG CAPCR PO (08:22)
[2018-10-20] MEDS: Acetaminophen 500 MG TAB 1000 MG PO (08:22)
[2018-10-20] MEDS: Aspirin E.C. 81 MG TABEC PO (08:22)
[2018-10-20] MEDS: NIFEdipine-CR 30 MG TABCR 90 MG PO (08:22)
[2018-10-20] MEDS: Montelukast 10 MG TAB PO (08:22)
[2018-10-20] MEDS: Potassium Chloride 20 MEQ TABCR PO (08:22)
[2018-10-20] MEDS: Furosemide 40 MG TAB PO (08:22)
[2018-10-20] MEDS: Multivitamin w/Minerals TAB 1 TAB PO (08:22)
[2018-10-20] MEDS: Loratidine 10 MG TAB PO (08:22)
[2018-10-20] MEDS: Insulin Aspart 300 UNITS/3 ML PEN SC ×4 (08:23→11:46)
[2018-10-20] MEDS: Metoprolol CR 50 MG TABCR PO (08:23)
[2018-10-20 08:43] VITALS: BP 152/65; PULSE 75; RESP 20; TEMP 36.4; O2SAT 91
[2018-10-20 09:10] VITALS: O2SAT 92
[2018-10-20] MEDS: Budesonide/Formoterol 80/4.5 6.9 GM 60 PUFF INH IH (09:13)
--- NOTE | 2018-10-20 09:28 | PDOC.CMDIS ---
LACE Index Scoring Tool - Questions: Acuity (Admit via E.D.?): No Comorbidities: Diabetes w/o Complication E.D. Visits: 0 Care Management Discharge Reason for Hospitalization: L Knee DJD Discharge Plan: Marija will be discharged home when medically ready. Her family will retrieve shower chair coordinated by this casualty underwriter through [facility] at Patient and MD request. Referral to [facility] for CM, [facility] and additional DME request of [employer] faxed. Per RT, she will return home on new O2 as well. Lorin will follow up with Dr. Auguste and her plan of care as prescribed including activity limitations and medication recommendations. She will transport via private vehicle with family. Patient/Family Education Needs: Review discharge instructions, discuss Ask Me Three.
[2018-10-20 10:30] VITALS: O2SAT 97
--- NOTE | 2018-10-20 11:04 | PT.INDS ---
Date of service: 10/20/18 Time of Service: 09:35 PT Notes Date: 10/20/18 Referring Doctor: Dr. Auguste PT Orders: PT CONSULT: Status post left TKA Precautions: Weightbearing as tolerated left lower extremity, fall, standard Treatment Dates: 10/14/18 - 10/20/18 Patient Profile/Admitting Diagnosis: Patient admitted after left total knee replacement performed earlier today. Patient has participated in PT intervention 1-2x/day for 7 days, with a total of 10 PT sessions. PMHX: Diabetes, hypertension, dyslipidemia, status post CABG Social History/Home Situation: Patient lives in a mobile home with ramp to enter. She reports that she lives with her son, who assist with her care. She has been utilizing a wheeled walker due to increasing knee pain prior to surgery Equipment Owned/DME: Wheeled walker, ramp Subjective: Patient states that she is feeling good. She denies pain, and states that she feels comfortable getting up and trying some walking. She has been working on her exercises as instructed by PT throughout the night. Objective: General Observation: Patient resting in chair at initiation of session. No lines. Mental Status: A and O x3 Pain: 0/10 ROM: Right Upper Extremity: WFL Left Upper Extremity: WFL Right Lower Extremity: WFL Left Lower Extremity: Patient is able to demonstrate 0-95 degrees of knee flexion with gentle stretching. Strength: Right Upper Extremity: WFL Left Upper Extremity: WFL Right Lower Extremity: WFL Left Lower Extremity: Patient is able to perform straight leg raise, and able to demonstrate quad strength greater than or equal to 3/5. Ankle dorsiflexion is at least 3/5 Sensation: Intact distally Bed Mobility/Transfers: Supine?sit: Supervision Sit?supine: Supervision Sit?stand: Independent Stand to sit: Independent Gait: Patient ambulate 120 feet with FW W, supervision, and cues for pursed lip breathing. Patient was monitored for SaO2 levels by RT. At rest she is in the mid 90s on room air, and post ambulation at 92% on room air. Balance: Static Sitting: Normal Dynamic Sitting: Normal Static Standing: Good Dynamic Standing: Fair Special Tests: Mobility Limitations Standardized Measure [facility] AM-PAC 6 clicks Basic Mobility Inpatient Short Form: Raw Score: 23 CMS Score: 11 % deficit Treatment: Today's session consisted of reevaluation, followed by instruction in a therapeutic exercise program, as noted on flowsheet. She received gait and transfer training, with close monitoring of oxygen levels during ambulation on room air. We reviewed her home exercise program, with patient demonstrating good understanding of activities to continue at home. She will complete the following exercises for 10 repetitions, 3 times per day: 1. Ankle pumps 2. Quad sets 3. Glutes sets 4. SLR 5. Heel slides 6. L AQ Assessment: Patient is a 78 year old male referred to physical therapy services with the diagnosis of left knee OA, status post TKA performed earlier 10/14/2017. She did postoperative course complicated by oxygen desaturation with ambulation, requiring a longer than planned hospitalization. During that time she is demonstrated significant improvements in mobility and independence, and was able to effectively wean off oxygen supplementation. This point all PT goals have been met, and patient is appropriate for discharge from PT in an acute care setting, with recommendation for home health PT, and for patient to obtain a shower chair due to limitations in dynamic balance and tolerance to static standing. Goals: Goals X1 week 1. Supine-Sit: Supervision (MET) 2. Sit-Supine : Supervision(MET) 3. Sit-Stand: Supervision(MET) 4. Stand-Sit : Supervision(MET) 5. Bed-Chair : Supervision with FW W(MET) 6. Chair-Bed : Supervision with FW W(MET) 7. Gait : Supervision with FW W is 50 feet(MET) Plan of Care/Treatment Plan: DC from PT services in acute care setting DISCHARGE RECOMMENDATIONS: Home with recommendation for home health PT. EQUIPMENT NEEDS: shower chair TREATMENT CODE/TIME:9:35-10:00 ([id number], [id number]) Gretel Skaggs, PT, DPT [facility]
[2018-10-20 11:13] VITALS: BP 146/86; PULSE 75; RESP 20; TEMP 37; O2SAT 97
--- NOTE | 2018-10-20 11:39 | PGE_ITS ---
Date of Service Date of service: 10/20/18 Time of Service: 11:33 Assessment and Plan (1) Hypoxemia requiring supplemental oxygen: Current visit: Yes Status: Acute Hypoxia in patient with recent URI, prior history of COPD vs. Asthma, and abnormal exam. CXR with likely infiltrate by initial VRad read. Although official read by local radiology of CXR with no acute abnormality, patient clearly had an abnormal exam. Appears to have improved both clinically and subjectively. Patient without any further oxygen requirement, with nearly resolved abnormal physical exam findings. She is returning home today, with the following recommendations: - Continue Renally dosed Levofloxacin at 750mg Q48 hours - next dose due tomorrow (10/21). Today is day #4/7 of antibiotics. - Continue but taper Prednisone - 40mg daily X3 days, 20mg daily X3 days then stop. - Continue home inhaler therapy as previous, with liberal use of rescue inhaler and nebulizer if needed. No strenuous activity. Subjective Interval history since last seen: Very Pleasant 78 year old woman, admitted on 10/14/2018 for an elective Left sided TKA, being evaluated for mild hypoxia. Mrs. Brennan has a prior medical history of CAD s/p CABG in 2010, Diastolic CHF, MR, HTN, CKD, DM, GERD, and dyslipidemia. There is also note of Asthma vs. COPD in patient with a strong history of second hand tobacco exposure. The patient also has a history of OA, and underwent a successful and uneventful left sided total knee arthroplasty on 10/14. She had been doing well, but prior to her discharge today began exhibiting mild hypoxia and a new oxygen requirement. A subsequent CXR showed evidence of a left sided opacity that had increased in size from prior imaging in 2017, noted to represent pneumonia vs. atelectasis. In discussion with the patient it appears that she was diagnosed with an upper respiratory illness as an outpatient prior to her surgery - actually delaying her procedure initially. No evidence of treatment with antibiotics or steroids by history, but patient reported need for increased use of her inhalers. She also reported a change in her cough and sputum production at the time. The patient was initiated on renally dosed levofloxacin and steroid therapy, with rapid improvement in symptoms. She appears vastly improved today. Ambulatory testing without any further Oxygen requirement. No overnight events reported. Remains afebrile. Exam Narrative Exam Narrative: General: Patient appears comfortable, Awake and Alert, NAD Neck: Supple CV: Regular, nontachycardic, S1S2, 3/6 LLSB murmur. Pulmonary: Left basilar crackles essentially resolved, previous wheezing resolved. Abdomen: + Bowel Sounds, soft, nontender, nondistended Vascular: Mild b/l nonpitting lower extremity edema Psych: Normal mood and affect. Objective Objective Clinical Data: Vital Signs Temperature 37.0 C 10/20/18 11:13 Temperature Source Tympanic 10/20/18 11:13 Pulse 75 10/20/18 11:13 Pulse Rhythm Regular 10/20/18 08:18 Respiratory Rate 20 10/20/18 11:13 Respiratory Effort 10/20/18 08:18 Respiratory Depth Normal 10/20/18 08:18 Respiratory Pattern Normal 10/20/18 08:18 Blood Pressure 146/86 H 10/20/18 11:13 Pulse Oximetry 97 10/20/18 11:13 Respiratory End-tidal CO2 35 10/14/18 13:00 Oxygen Delivery Method Room Air 10/20/18 11:13 Oxygen Flow Rate 0 10/20/18 11:13 Pain Level 4 10/20/18 08:22 Comment 10/20/18 02:55 Intake & Output 10/19/18 10/19/18 10/20/18 11:59 23:59 11:59 Intake Total 590 / 1520 930 / 1520 300 / 300 Output Total 150 / 150 Balance 440 / 1370 930 / 1370 300 / 300 Weight 80.1 kg 81.1 kg Intake: Oral 590 / 1520 930 / 1520 300 / 300 Output: Urine 150 / 150 Other: Urine Color Yellow Urine Appearance Clear Comment No documentation; per HOME HEALTH ADMINISTRATOR Sue, pt up to commode x2 with PT. No documentation. Pt poor historian regarding voiding. Voiding Methods Bedside Commode Toilet Toilet Incontinent Laboratory Results WBC 8.96 k/cumm (4.4-10.8) 10/18/18 06:30 RBC 3.32 m/cumm (4.00-5.20) L 10/18/18 06:30 Hgb 9.2 g/dL (12.0-15.5) L 10/18/18 06:30 Hct 28.9 % (36.0-46.0) L 10/18/18 06:30 MCV 87.0 fL (80-95) 10/18/18 06:30 MCH 27.7 pg (27.0-33.0) 10/18/18 06:30 MCHC 31.8 g/dL (32.0-36.0) L 10/18/18 06:30 RDW 13.9 % (11.7-14.6) 10/18/18 06:30 Plt Count 213 x1000/uL (130-400) 10/18/18 06:30 MPV 11.7 fL (8.0-11.0) H 10/18/18 06:30 Immature Gran % 0.2 10/18/18 06:30 Neutrophils % 72.0 10/18/18 06:30 Lymphocytes % 13.4 10/18/18 06:30 Monocytes % 11.0 10/18/18 06:30 Eosinophils % 3.2 10/18/18 06:30 Basophils % 0.2 10/18/18 06:30 Absolute Neutrophils 6.44 k/cumm (1.2-6.7) 10/18/18 06:30 Absolute Lymphocytes 1.20 k/cumm (1.2-3.4) 10/18/18 06:30 Absolute Monocytes 0.99 k/cumm (0.11-0.7) H 10/18/18 06:30 Absolute Eosinophils 0.29 k/cumm (0.0-0.7) 10/18/18 06:30 Absolute Basophils 0.02 k/cumm (0.0-0.2) 10/18/18 06:30 Sodium 137 mmol/L (136-145) 10/18/18 06:30 Potassium 4.7 mmol/L (3.5-5.1) 10/18/18 06:30 Chloride 102 mmol/L (98-107) 10/18/18 06:30 Carbon Dioxide 27.3 mmol/L (21.0-32.0) 10/18/18 06:30 Anion Gap 7.7 mmol/L (3-11) 10/18/18 06:30 BUN 34 mg/dL (7-18) H 10/18/18 06:30 Creatinine 1.59 mg/dL (0.55-1.02) H 10/18/18 06:30 Estimated GFR/1.73 m2 31.57 (mL/min/1.73m2) 10/18/18 06:30 Glucose 94 mg/dL (70-100) D 10/18/18 06:30 Hemoglobin A1c 8.0 % (4.5-6.2) H 10/14/18 09:00 Calcium 8.6 mg/dL (8.5-10.1) 10/18/18 06:30 Patient ABO/Rh O Positive 10/14/18 09:00 Antibody Screen Negative 10/14/18 09:00
== END 2018-10-20 15:34 | disposition home or self-care (01) | DRG 470 ==
LOC: PDS 12:11 → MS 12:41
PROVIDERS: Internal Medicine; Admitting Provider Student in an Organized Health Care Education/Training Program; PCP Family Medicine; Visit Provider Student in an Organized Health Care Education/Training Program
PROC: 0SRD0J9 Replacement of Left Knee Joint with Synthetic Substitute, Cemented, Open Approach (ICD-10-PCS; CPT 27447; principal; 2018-10-14 10:45)
DX: M17.12 Unilateral primary osteoarthritis, left knee (principal); I50.32 Chronic diastolic (congestive) heart failure; I13.0 Hypertensive heart and chronic kidney disease with heart failure and stage 1 through stage 4 chronic kidney disease, or unspecified chronic kidney disease; R44.3 Hallucinations, unspecified; R11.2 Nausea with vomiting, unspecified; R09.02 Hypoxemia; G89.18 Other acute postprocedural pain; Z96.652 Presence of left artificial knee joint; T40.2X5A Adverse effect of other opioids, initial encounter; J44.9 Chronic obstructive pulmonary disease, unspecified; R91.8 Other nonspecific abnormal finding of lung field; I34.0 Nonrheumatic mitral (valve) insufficiency; E11.22 Type 2 diabetes mellitus with diabetic chronic kidney disease; N18.9 Chronic kidney disease, unspecified; K21.9 Gastro-esophageal reflux disease without esophagitis; E78.5 Hyperlipidemia, unspecified; I25.10 Atherosclerotic heart disease of native coronary artery without angina pectoris; Z95.1 Presence of aortocoronary bypass graft; Z77.22 Contact with and (suspected) exposure to environmental tobacco smoke (acute) (chronic); J45.909 Unspecified asthma, uncomplicated
CPT/HCPCS: 27447; 64447; 36415; 76942; 80048; 85027; 86850; 86900; 86901; 94618; 94640; 97110; 97162; 97530; 99232; 99253; NC; 71046; 83036; 85025; 93005; 93010; 94762; 99222; J0690; J1885; J1956; J2370; J2405; J7512; J7620

== ENCOUNTER 2018-11-03 14:22 | Outpatient (CLI) | payer MEDICARE, MEDICAID, SELFPAY ==
--- NOTE | 2018-11-03 12:53 | DI.RAD_ITS ---
SYMPTOMS/DIAGNOSIS: LEFT TOTAL KNEE ARTHROPLASTY LEFT KNEE: The patient is status post TKR, the prosthesis in good position, surrounding bone intact. LEG LENGTH: The left leg measures 81 cm, the right leg measures 81 cm.
== END 2018-11-03 14:42 ==
PROVIDERS: PCP Family Medicine; Visit Provider Student in an Organized Health Care Education/Training Program
DX: M17.12 Unilateral primary osteoarthritis, left knee (principal); Z96.652 Presence of left artificial knee joint; Z47.1 Aftercare following joint replacement surgery
CPT/HCPCS: 73560; 77073

== ENCOUNTER 2018-11-16 14:04 | Outpatient (CLI) | payer MEDICARE, MEDICAID, SELFPAY ==
[2018-11-16 15:02] LABS: COMMENT (LAB VIEW ONLY) 309.02 mg/dL; Microalb ug/mg Crea 51.3 ug/mg Cr
[2018-11-16 15:41] LABS: CREATININE 1.07 mg/dL (0.55-1.02); Estimated GFR 49.86 (mL/min/1.73m2)
== END 2018-11-16 14:24 ==
PROVIDERS: PCP Family Medicine; Visit Provider Family Medicine
DX: N17.9 Acute kidney failure, unspecified (principal)
CPT/HCPCS: 36415; 82043; 82565; 82570

== ENCOUNTER 2018-11-22 00:03 | Outpatient (CLI) | payer MEDICARE, MEDICAID, SELFPAY ==
--- NOTE | 2018-11-22 07:09 | MERGEMPI_ITS ---
*[facility]* *[facility]* [address] [place] [address] Myocardial Perfusion Imaging - SPECT Regadenoson Date of study: 11/22/2018 *PATIENT PRESENTATION* Height: 147.3cm (58in) Blood Pressure: Weight: 75kg (165lb) BSA: 1.79m^2 Referring physician: Sanjeev Gallardo MD Ordering physician: Paul Christiansen Impressions: - Abnormal study after pharmacologic stress. - Trial med RX for CAD reasonable. Summary: 1. Myocardial perfusion imaging: There is a small sized, moderately intense, predominantly reversible defect involving the anterolateral wall(s). This suggests small ischemia in the distribution of the left anterior descending coronary artery. Overall ischemia: small. 2. The calculated left ventricular ejection fraction after stress: 65%. No left ventricular regional motion abnormality. Indication: R07.9. History: REASON FOR VISIT: CHEST PAIN AND SHORTNESS OF BREATH ON EXERTION. REASON FOR VISIT: PT WITH A HISTORY OF CAD S/P CABG IN 2010, DIASTOLIC CHF, MR, HTN, CKD, DM, GERD AND DYSLIPIDEMIA. IS HERE FOR TESTING DUE TO SHORTNESS OF BREATH ON EXERTION. PT EXPERIENCED ONE EPISODE OF CHEST PAIN 3 MONTHS AGO, IT WOKE HER UP FROM SLEEP, SHE FEELS HER CHEST PAIN MAY HAVE BEEN RELATED TO ACID REFLUX, SHE HAS HAD NO CHEST DISCOMFORT SINCE THEN. PMH: COPD. Risk factors: Family history of coronary artery disease. Hypertension. Diabetes mellitus. Obesity. Dyslipidemia. Cholesterol: 172mg/dl. HDL: 67mg/dl. LDL: 91mg/dl. Triglycerides: 66mg/dl. Imaging Technique: Protocol: Appsperseon. Acquisition: Gated SPECT; 1 day - rest/stress. The patient was imaged in the supine position. Attenuation correction used. Isotope administration: - Rest. Tc[99m]-sestamibi. Dose: 10.1mCi. Injection time: 11:15 AM. Injection to stress time: 00:45. - Stress. Tc[99m]-sestamibi. Dose: 31mCi. Injection time: 01:04 PM. 1-2 min before end of exercise Stress protocol: +--------+--+ + + !Stage !HR!BP (mmHg) !Comments ! +--------+--+ + + !Baseline!65!120/72 (88)! ! +--------+--+ + + !1 min !83!150/70 (97)!Inject Regadenoson.! +--------+--+ + + !3 min !80!140/68 (92)! ! +--------+--+ + + !6 min !77!140/64 (89)! ! +--------+--+ + + * Stress results: The rate-pressure product for the peak heart rate and blood pressure was 27538wn Hg/min. Stress ECG: LEXISCAN STRESS TEST ENDED IN 6 MINUTES & 23 SECONDS. PT EXPERIENCED NO SIGNIFICANT SIDE EFFECTS FROM LEXISCAN INJECTION NORMAL HEART RATE AND BLOOD PRESSURE RESPONSE TO LEXISCAN INJECTION. NO ECTOPY NO ANGINA NO SIGNIFICANT ST SEGMENT CHANGES Myocardial perfusion: Imaging information: gated. There is a small sized, moderately intense, predominantly reversible defect involving the anterolateral wall(s). This suggests small ischemia in the distribution of the left anterior descending coronary artery. Overall ischemia: small. Ventricular Function (Wall Motion): The calculated left ventricular ejection fraction after stress: 65%. No left ventricular regional motion abnormality. Study data: Sanjeev Gallardo MD supervised and was readily available during the procedure. This study was interpreted by [facility]. Study status: Routine. Consent: The risks, benefits, and alternatives to the procedure were explained to the patient and informed consent was obtained. Procedure: Initial setup. A baseline ECG was recorded. Surface ECG leads and manual cuff blood pressure measurements were monitored. Heart sounds: Normal. Lung sounds: Normal. Regadenoson stress test. Stress testing was performed, with regadenoson by intravenous bolus, for a total dose of 0.4mgover 10.00sec, followed by a 5ml saline flush. The infusion was terminated due to per protocol. The patient was unable to exercise due to leg, joint, or back pain. Study completion: All catheters inserted during the procedure were removed. The patient tolerated the procedure well and was discharged from the lab. Discharge: The patient left the laboratory in stable condition. Birthdate: Patient birthdate: 1940. Sex: Gender: female. Study date: Study date: 11/22/2018. Study time: 00:01 AM. Electronically signed by Sanjeev Gallardo MD 11/22/2018 18:17
[2018-11-22] MEDS: Regadenoson 0.4 MG/5 ML SYR IVP (13:33)
== END 2018-11-22 00:23 ==
PROVIDERS: PCP Family Medicine; Visit Provider Family Medicine
DX: R07.89 Other chest pain (principal); R06.02 Shortness of breath; Z95.1 Presence of aortocoronary bypass graft; R94.30 Abnormal result of cardiovascular function study, unspecified
CPT/HCPCS: 78452; 93016; 93018; 93017; J2785

== ENCOUNTER → 2018-12-01 10:03 | Outpatient (BNVA) | payer MEDICARE, MEDICAID, SELFPAY | PROVIDERS: PCP Family Medicine; Referring Provider Family Medicine; Visit Provider Student in an Organized Health Care Education/Training Program | DX: M17.12 Unilateral primary osteoarthritis, left knee (principal); Z47.1 Aftercare following joint replacement surgery; Z96.652 Presence of left artificial knee joint; M65.341 Trigger finger, right ring finger | CPT/HCPCS: 20600; 99213; J1030 ==

== ENCOUNTER → 2018-12-23 12:07 | Outpatient (BNVA) | payer MEDICARE, MEDICAID, SELFPAY | PROVIDERS: PCP Family Medicine; Visit Provider Internal Medicine Cardiovascular Disease | DX: I25.10 Atherosclerotic heart disease of native coronary artery without angina pectoris (principal); E11.22 Type 2 diabetes mellitus with diabetic chronic kidney disease; I12.9 Hypertensive chronic kidney disease with stage 1 through stage 4 chronic kidney disease, or unspecified chronic kidney disease; N18.9 Chronic kidney disease, unspecified; Z79.4 Long term (current) use of insulin; E78.5 Hyperlipidemia, unspecified; I34.0 Nonrheumatic mitral (valve) insufficiency | CPT/HCPCS: 99214 ==

== ENCOUNTER → 2018-12-29 10:47 | Outpatient (BNVA) | payer MEDICARE, MEDICAID, SELFPAY | PROVIDERS: PCP Family Medicine; Referring Provider Family Medicine; Visit Provider Student in an Organized Health Care Education/Training Program | DX: M17.12 Unilateral primary osteoarthritis, left knee (principal); M65.341 Trigger finger, right ring finger; Z47.1 Aftercare following joint replacement surgery; Z96.652 Presence of left artificial knee joint; Z98.890 Other specified postprocedural states ==

== ENCOUNTER 2019-02-15 07:00 | Outpatient (CLI) | payer MEDICARE, MEDICAID, SELFPAY ==
[2019-02-15 13:21] LABS: Hemoglobin A1C 9.7 % (4.5-6.2)
== END 2019-02-15 07:20 ==
PROVIDERS: PCP Family Medicine; Visit Provider Family Medicine
DX: E11.9 Type 2 diabetes mellitus without complications (principal)
CPT/HCPCS: 36415; 83036

== ENCOUNTER → 2019-02-16 10:03 | Outpatient (BNVA) | payer MEDICARE, MEDICAID, SELFPAY | PROVIDERS: PCP Family Medicine; Referring Provider Family Medicine; Visit Provider Student in an Organized Health Care Education/Training Program | DX: Z47.1 Aftercare following joint replacement surgery (principal); Z96.652 Presence of left artificial knee joint; M17.12 Unilateral primary osteoarthritis, left knee; M25.562 Pain in left knee; I10 Essential (primary) hypertension; E11.9 Type 2 diabetes mellitus without complications | CPT/HCPCS: 99212; 99213 ==

== ENCOUNTER → 2019-04-14 12:44 | Outpatient (BNVA) | payer MEDICARE, MEDICAID, SELFPAY | PROVIDERS: PCP Family Medicine; Visit Provider Internal Medicine Cardiovascular Disease | DX: I25.10 Atherosclerotic heart disease of native coronary artery without angina pectoris (principal); I12.9 Hypertensive chronic kidney disease with stage 1 through stage 4 chronic kidney disease, or unspecified chronic kidney disease; E78.5 Hyperlipidemia, unspecified; I34.0 Nonrheumatic mitral (valve) insufficiency; Z95.1 Presence of aortocoronary bypass graft; E11.22 Type 2 diabetes mellitus with diabetic chronic kidney disease; N18.9 Chronic kidney disease, unspecified | CPT/HCPCS: 99214 ==

== ENCOUNTER → 2019-07-28 13:10 | Outpatient (BNVA) | payer MEDICARE, MEDICAID, SELFPAY | PROVIDERS: PCP Family Medicine; Referring Provider Family Medicine; Visit Provider Internal Medicine Cardiovascular Disease | DX: I34.0 Nonrheumatic mitral (valve) insufficiency (principal); I25.10 Atherosclerotic heart disease of native coronary artery without angina pectoris; I10 Essential (primary) hypertension; E78.5 Hyperlipidemia, unspecified; J44.9 Chronic obstructive pulmonary disease, unspecified; E11.9 Type 2 diabetes mellitus without complications; Z79.4 Long term (current) use of insulin | CPT/HCPCS: 99204; 99215 ==

== ENCOUNTER 2019-09-21 11:43 | Outpatient (CLI) | payer MEDICARE, MEDICAID, SELFPAY ==
[2019-09-21 12:58] LABS: Hemoglobin A1C 8.4 % (3.8-5.6)
== END 2019-09-21 12:03 ==
PROVIDERS: PCP Family Medicine; Visit Provider Family Medicine
DX: R73.9 Hyperglycemia, unspecified (principal)
CPT/HCPCS: 36415; 83036

== ENCOUNTER 2019-09-21 11:58 | Outpatient (REF) | payer MEDICARE, MEDICAID, SELFPAY | END 2019-09-21 12:18 | LOC: LBN 11:58 | PROVIDERS: PCP Family Medicine; Visit Provider Family Medicine | DX: R30.0 Dysuria (principal) | CPT/HCPCS: 87077; 87086; 87186 ==

== ENCOUNTER 2019-10-14 02:22 | Outpatient (CLI) | payer MEDICARE, MEDICAID, SELFPAY ==
--- NOTE | 2019-10-14 14:00 | DI.US_ITS ---
APPROVED REPORT EXAM: Comprehensive 2D, Doppler, and color-flow Echocardiogram Patient [facility]: [facility] Superintendent: Quyen Laura RDCS (AE) Indications: Mitral regurgitation Conclusion Left Ventricle : The left ventricle is grossly normal size. The overall left ventricular systolic fu nction appears normal. There is normal left ventricular wall thickness. The posterior wall thickness is mildly increased. There is normal LV segmental wall motion. Diastolic function is indeterminate. LVEF is 50-54%. Right Ventricle : The right ventricle is normal size. The right ventricular systolic function is norm al. Atria : The left atrium size is normal. The right atrium size is normal. Aortic Valve : The aortic valve is not well visualized. No aortic regurgitation is present. There is no aortic valvular stenosis. Mitral Valve : The mitral valve is normal in structure. Mild mitral regurgitation. No evidence of bairon ral valve stenosis. Great Vessels : The IVC was not visualized. Compared to echocardiogram from 11/03/2016: There is no significant change. Wall motion Left Ventricle The left ventricle is grossly normal size. The overall left ventricular systolic function appears nor mal. There is normal left ventricular wall thickness. The posterior wall thickness is mildly increase d. There is normal LV segmental wall motion. Diastolic function is indeterminate. LVEF is 50-54%. Right Ventricle The right ventricle is normal size. The right ventricular systolic function is normal. Atria The left atrium size is normal. The right atrium size is normal. Aortic Valve The aortic valve is not well visualized. There is no aortic valvular stenosis. No aortic regurgitatio n is present. Mitral Valve The mitral valve is normal in structure. No evidence of mitral valve stenosis. Mild mitral regurgitat ion. Tricuspid Valve The tricuspid valve is normal in structure. There is no tricuspid valve stenosis. Mild to moderate tr icuspid regurgitation. Pulmonic Valve Pulmonic valve is not well visualized. There is no pulmonic valvular stenosis. Great Vessels The aortic root is normal in size. The ascending aorta is normal in size. The IVC was not visualized. 2D Dimensions IVSD d PLAX 0.91 cm F: 0.6-1.0 LV Vol A2C d MOD 96.5 mL LVPW d PLAX 1.00 cm F: 0.6 - 1.0 LV Vol A4C d MOD 88.4 mL LVID d PLAX 4.05 cm F: 3.8 - 5.2 LA vol/ BSA A2C s A-L 28.2 mL/m2 LVDs 2.80 cm F: 2.2 - 3.5 LA vol/ BSA A4C s A-L 22.6 mL/m2 Ao Root d 2.56 cm F: 2.7 - 3.3 LA Vol/ BSA Biplane s A-L 29.5 mL/m2 Ao Asc Diam d 3.08 cm F: 2.3 - 3.1 LA Area A4C s MOD 14.72 cm2 LV EF Teichholz 57.6 % LA Area A2C s MOD 19.15 cm2 LVEF (Galarza's) 54.99 % F: 54 - 74 LV EF A4C MOD 51.4 % LV Volume 74.19 mL F: 46 - 106 LV EF A2C MOD 58.9 % LV Volume Index 42.63 mL/m2 F: 29 - 61 LV EF Biplane MOD 55.0 % LV Vol Biplane MOD 94.3 mL FS 29.90 % LV Diastology MV E' medial 0.045 (>0.07 m/s) E/A Ratio 1.4 LV E/e MED 21.85 (<14) MV E Vmax 0.98 (0.4-1.3 m/s) MV E/E' medial 21.87 MV A Vmax 0.70 (0.4-1.3 m/s) MV E/A Ratio 1.39 Aortic Valve LVOT Area 2.98 cm2 AoV Area Vmax 2.10 cm2 LVOT Vmax 1.24 m/s AoV Area/ BSA (Vmax) 1.20 cm2/m2 LVOT Mean Mehdi. 0.83 m/s LILI Mean Mehdi. 2.05 cm2 LVOT Peak Grad 6.2 mmHg LILI Mean Mehdi. Index 1.18 cm2/m2 LVOT Mean Grad 3.2 mmHg LVOT VTI 0.277 m LVOT Diam s 1.90 cm (M/F) 1.5-2.5 AoV Vmax 1.77 (0.5-1.3 m/s) Velocity Ratio 0.70 AoV Mean Mehdi. 1.20 m/s AoV Peak Grad 12.5 mmHg LVOT SV 82.62 mL AoV Mean Grad 6.4 (<5 mmHg) AoV VTI 0.363 (0.18-0.25 m) AoV Area VTI 2.28 (2.5-4.5 cm2) AoV Area/ BSA (VTI) 1.31 cm/m2 Mitral Valve MV DT 220 (160-240 msec) MR Vmax 4.57 m/s MV PHT 64 msec MR VTI 1.609 m MV Area PHT 3.45 cm2 MR Peak Grad 83.6 mmHg MV VTI 0.313 m MR Mean Grad 63.0 mmHg MV Area VTI 2.64 (4.0-6.0 cm2) Tricuspid Valve TR Peak Grad 24.1 mmHg TR Vmax 2.46 m/s
== END 2019-10-14 02:42 ==
PROVIDERS: PCP Family Medicine; Visit Provider Internal Medicine Cardiovascular Disease
DX: I34.0 Nonrheumatic mitral (valve) insufficiency (principal)
CPT/HCPCS: 93306

== ENCOUNTER → 2019-10-28 11:56 | Outpatient (BNVA) | payer MEDICARE, MEDICAID, SELFPAY | PROVIDERS: PCP Family Medicine; Referring Provider Family Medicine; Visit Provider Internal Medicine Cardiovascular Disease | DX: I25.10 Atherosclerotic heart disease of native coronary artery without angina pectoris (principal); I10 Essential (primary) hypertension; I34.0 Nonrheumatic mitral (valve) insufficiency; E78.5 Hyperlipidemia, unspecified | CPT/HCPCS: 99214 ==

== ENCOUNTER 2020-02-16 10:54 | Outpatient (CLI) | payer MEDICARE, MEDICAID, SELFPAY ==
--- NOTE | 2020-02-16 11:00 | DI.RAD_ITS ---
EXAM: XR KNEE LT 2V AP,LAT CLINICAL HISTORY: ANNUAL F/U TECHNIQUE: COMPARISON: CR XR knee LT 1V from 11/03/2018 FINDINGS: Two views were obtained. 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 The components appear well se ated. No other significant bony abnormality seen. IMPRESSION:
== END 2020-02-16 11:14 ==
PROVIDERS: PCP Family Medicine; Referring Provider Family Medicine; Visit Provider Student in an Organized Health Care Education/Training Program
DX: Z96.652 Presence of left artificial knee joint (principal); Z47.1 Aftercare following joint replacement surgery
CPT/HCPCS: 99213; 73560

== ENCOUNTER 2020-02-28 11:25 | Outpatient (CLI) | payer MEDICARE, MEDICAID, SELFPAY ==
[2020-02-28 13:04] LABS: Hemoglobin A1C 8.2 % (3.8-5.6)
[2020-02-28 13:24] LABS: CREATININE 1.04 mg/dL (0.55-1.02); Estimated GFR 51.38 (mL/min/1.73m2); Potassium 4.5 mmol/L (3.5-5.1)
== END 2020-02-28 11:45 ==
PROVIDERS: PCP Family Medicine; Visit Provider Family Medicine
DX: E11.65 Type 2 diabetes mellitus with hyperglycemia (principal); R73.9 Hyperglycemia, unspecified
CPT/HCPCS: 36415; 82565; 83036; 84132

== ENCOUNTER → 2020-05-03 12:29 | Outpatient (BNVA) | payer MEDICARE, MEDICAID, SELFPAY | PROVIDERS: PCP Family Medicine; Referring Provider Family Medicine; Visit Provider Internal Medicine Cardiovascular Disease | DX: I25.10 Atherosclerotic heart disease of native coronary artery without angina pectoris (principal); E78.5 Hyperlipidemia, unspecified; I10 Essential (primary) hypertension; I34.0 Nonrheumatic mitral (valve) insufficiency; J44.9 Chronic obstructive pulmonary disease, unspecified; E11.9 Type 2 diabetes mellitus without complications; Z79.4 Long term (current) use of insulin | CPT/HCPCS: 99214 ==

== ENCOUNTER 2020-06-11 17:55 | Outpatient (REF) | payer MEDICARE, MEDICAID, SELFPAY ==
--- NOTE | 2020-06-11 10:55 | SKI_PTH ---
PATIENT: Marija Brennan LOC: [facility] U#:[id number] AGE/SX: 79/F ROOM: RE06/11/[address]: Derrek Dixon DO : 1940 BED: DIS: 06/11/2020 SPEC #: [id number] RECD: 06/11/20 18:07 STATUS: MELONIE REQ #: [id number] BRADEN: 06/11/20 10:[address]: Derrek Dixon DEPT: Surgical Specimen RECD BY: Porsche Zamarripa ENTERED: 06/11/20 18:07 SP TYPE: SKI OT DR: Paul Christiansen MD Tissues: 1 - SKIN BIOPSY(SHAVE/PUNCH) Procedures: SKIN LEVEL 4 Comments: [id number]
== END 2020-06-11 18:15 ==
LOC: LBN 17:55
PROVIDERS: PCP Family Medicine; Visit Provider Otolaryngology Otolaryngology/Facial Plastic Surgery
DX: L82.0 Inflamed seborrheic keratosis (principal)
CPT/HCPCS: 88305

== ENCOUNTER → 2020-10-30 12:31 | Outpatient (BNVA) | payer MEDICARE, MEDICAID, SELFPAY | PROVIDERS: PCP Family Medicine; Referring Provider Family Medicine; Visit Provider Internal Medicine Cardiovascular Disease | DX: I25.10 Atherosclerotic heart disease of native coronary artery without angina pectoris (principal); I10 Essential (primary) hypertension; J44.9 Chronic obstructive pulmonary disease, unspecified; I34.0 Nonrheumatic mitral (valve) insufficiency; Z79.899 Other long term (current) drug therapy | CPT/HCPCS: 99214 ==

== ENCOUNTER 2020-12-03 14:02 | Outpatient (CLI) | payer MEDICARE, MEDICAID, SELFPAY ==
[2020-12-03 14:50] LABS: Hemoglobin A1C 7.4 % (<5.7)
== END 2020-12-03 14:03 | disposition home or self-care (01) ==
PROVIDERS: PCP Family Medicine; Visit Provider Family Medicine
DX: R73.9 Hyperglycemia, unspecified (principal)
CPT/HCPCS: 36415; 83036

== ENCOUNTER 2021-01-07 20:31 | Outpatient (REF) | payer MEDICARE, MEDICAID, SELFPAY | END 2021-01-07 20:32 | disposition home or self-care (01) | LOC: LBN 20:31 | PROVIDERS: PCP Family Medicine; Visit Provider Nurse Practitioner Family | DX: N39.0 Urinary tract infection, site not specified (principal) | CPT/HCPCS: 87077; 87086; 87186 ==